=== PATIENT | female | born 1945 | race Caucasian/White ===

== ENCOUNTER → 2017-11-01 15:04 | Outpatient (CLI) | payer MEDICARE, SELFPAY ==
--- NOTE | 2017-11-01 11:00 | CYSPIN_PTH ---
PATIENT: APOLLO CARREON LOC: [facility] U#:[id number] AGE/SX: 79/F ROOM: RE11/01/[address]: Dr. Alexander Patton MD : 1945 BED: DIS: SPEC #: [id number] RECD: 11/03/17 07:57 STATUS: TODD WOODY #: [id number] ИРИНА: 11/01/17 11:[address]: Alexander Patton DEPT: CYTOLOGY RECD BY: Louie Huertas ENTERED: 11/03/17 07:58 SP TYPE: CYSPIN FL OTHR DR: Dr. Dontae Segundo MD Tissues: Urine Procedures: Pap Stain (control) Special Stain Group II Cytospin Fluid HEADER OPERATION: Not noted PRE-OP DIAGNOSIS: Hematuria TISSUE SUBMITTED: Urine for cytology DIAGNOSIS CYTOLOGY Urine for cytology (cytospin): Negative for malignant cells. AM:joselin 11/04/17 CYTOLOGY STUDY Slides are reviewed. CYTOLOGY GROSS Received is 10 ml of clear yellow fluid labeled with the patient's name and and designated per the requisition as urine. Submitted for cytology preparation. 11/03/17 TC:5 CPT: 81846
[2017-11-01 15:06] LABS: Cytology, Body Fluid / CSF SEE PATHOLOGY REPORT
== END ==
PROVIDERS: Family Provider Family Medicine; PCP Family Medicine; Visit Provider Urology
DX: R31.9 Hematuria, unspecified (principal)
CPT/HCPCS: 88108; 88313

== ENCOUNTER 2017-11-11 12:31 | Day surgery (SDC) | payer MEDICARE, SELFPAY ==
--- NOTE | 2017-11-11 | URE_PTH ---
PATIENT: APOLLO CARREON LOC: [facility] – [place] U#:[id number] AGE/SX: 72/F ROOM: RE11/11/[address]: Dr. Alexander Patton MD : 1945 BED: DIS: 11/11/2017 SPEC #: [id number] RECD: 11/11/17 16:24 STATUS: TODD WOODY #: [id number] ИРИНА: 11/11/17 00:[address]: Alexander Patton DEPT: SURGICAL PATHOLOGY RECD BY: Tao Brizuela ENTERED: 11/14/17 12:29 SP TYPE: URETER BX OTHR DR: Dr. Dontae Segundo MD Tissues: Ureter, NOS Procedures: Surgery Specimen Level IV HEADER OPERATION: Cysto, ureteroscopy, retrograde PRE-OP DIAGNOSIS: Left hydronephrosis, hydroureter, left flank pain TISSUE SUBMITTED: Left ureter biopsy MICROSCOPIC DIAGNOSIS Left ureter, biopsy: No tissue is identified. SJ:joselin 11/15/17 COMMENT Correlation with clinical findings and appropriate follow up are necessary. Case has been reviewed in consultation with Dr. Vazquez who concurs with the above diagnosis. IDC:AM MICROSCOPIC DESCRIPTION Slides are reviewed. GROSS DESCRIPTION Received in fixative is one container labeled with the patient's name and designated left ureter biopsy. No obvious tissue is identified. Multiple gauze fragments are noted. The specimen is filtered and submitted entirely in one cassette. It is doubtful any tissue is present in the specimen. / SJ:joselin 11/14/17 TC: Cannot code CPT: 86028
--- NOTE | 2017-11-11 | FLU_PTH ---
PATIENT: APOLLO CARREON [place] [facility] [place][id number] AGE/SX: 72/F ROOM: RE11/11/[address]: Dr. Alexander Patton MD : 1945 BED: DIS: 11/11/2017 SPEC #: [id number] RECD: 11/11/17 12:29 STATUS: TODD WOODY #: [id number] ИРИНА: 11/11/17 00:[address]: Alexander Patton DEPT: CYTOLOGY RECD BY: Tao Brizuela ENTERED: 11/14/17 12:30 SP TYPE: Fluid OTHR DR: Dr. Dontae Segundo MD Tissues: Ureter, NOS Procedures: Pap Stain (control) Special Stain Group II Cytospin Fluid HEADER OPERATION: Cysto, ureteroscopy, retrograde PRE-OP DIAGNOSIS: Left hydronephrosis, hydroureter, left flank pain TISSUE SUBMITTED: Fluid for cytology from left ureter DIAGNOSIS CYTOLOGY Fluid for cytology from left ureter (cytospin): Acellular specimen. SJ:rg 11/15/17 COMMENT Case has been reviewed in consultation with Dr. Vazquez who concurs with the above diagnosis. IDC:AM CYTOLOGY STUDY Slides are reviewed. CYTOLOGY GROSS Received is 0.25 ml of clear fluid labeled with the patient's name and and designated per the requisition as left ureter. Submitted for cytology preparation. / 11/14/17 TC: Cannot code CPT: 37724
[2017-11-11 13:14] VITALS: BP 143/72; PULSE 68; RESP 16; TEMP 36.4; O2SAT 96; BMI 29.3
--- NOTE | 2017-11-11 16:09 | PCM.DC.URO ---
Discharge Diet: Light diet - advance as tolerated Discharge Activity: Return to Normal Activity Instructions: Ureteral Stents Allergies/Adverse Reactions: Allergies RASHEL Inhibitors Adverse Reaction (Verified 11/07/17 14:06) Other levofloxacin [From Levaquin] Adverse Reaction (Verified 11/07/17 14:06) Rash Medications to take at Discharge Amlodipine [Norvasc] 5 mg PO DAILY 11/07/17 Ascorbic Acid [Vitamin C] 1,000 mg PO PRN PRN 11/07/17 Aspirin [Aspirin, Baby] 81 mg PO DAILY@0800 11/07/17 Atorvastatin Calcium [Lipitor] 40 mg PO QHS 11/07/17 Budesonide/Formoterol 80-4.5 [Symbicort 80-4.5 Mcg Inhaler] 1 puff IN BID 11/07/17 Calcium Carbonate/Vitamin D3 [Calcium 600-Vit D3 800 Tablet] 1 each PO DAILY 11/07/17 Hydrochlorothiazide [Hctz] 25 mg PO DAILY 11/07/17 Lorazepam [Ativan] 1 mg PO BID 11/07/17 Losartan Potassium [Losartan Potassium] 100 mg PO DAILY 11/07/17 Methimazole [Tapazole] 5 mg PO DAILY 11/07/17 Metoprolol Succinate [Toprol Xl] 50 mg PO DAILY 11/07/17 [place]-3 Fatty Acids [Fish Oil] 500 mg PO DAILY 11/07/17 Potassium Chloride [K-Dur] 20 meq PO DAILY 11/07/17 Tiotropium [place] [Spiriva] 18 mcg IH DAILY 11/07/17 Vitamin B Complex 1 each PO DAILY 11/07/17 Zolpidem Tartrate [Zolpidem Tartrate] 5 mg PO DAILY 11/07/17 Hydrocodone/Acetaminophen [Frazee 5-325 Tablet] 1 ea PO Q4H PRN PRN 7 Days #14 tab 11/11/17 The following prescriptions were given: Hydrocodone/Acetaminophen [Frazee 5-325 Tablet] 1 ea PO Q4H PRN PRN 7 Days #14 tab PRN Reason: Pain Primary Care Physician: Dontae Segundo MD [Primary Care Provider] - Test Results: Test results from this visit will be discussed in further detail at your follow-up appointment, if applicable. Please Follow Up With: Alexander Patton MD When: 2 weeks, please call to make an appointment.
--- NOTE | 2017-11-11 16:10 | PCM.OPRPT ---
Report of Operation Date of Procedure: 11/11/17 Pre-Operative Diagnosis: Left hydronephrosis and hydroureter Post-Operative Diagnosis: Same and ureteral scar tissue Surgery/Procedure Performed:: Cystoscopy, left retrograde pyelogram, left ureteroscopy and biopsy of ureter, balloon dilation of the ureter, left stent placement. Description of Surgical Findings:: 72-year-old female who was an outside hospital with severe pain on the left side with hydronephrosis on CAT scan was done no clear stone was seen some sludge reported in the ureter. Today she reports to the hospital for diagnostic ureteroscopy on the left side and will attempt to inspect the ureter and a biopsy and possibly place a stent. 69-year-old female taken back to the operating room after smooth induction of general anesthesia she was placed supine in a dorsolithotomy position, the urethra and vaginal area were prepped and draped in usual sterile fashion, the urethra is normal she did have a very large cystocele and drop bladder went inside the bladder the 21 Burkinan rigid cystourethroscope the entire bladder mucosa was normal no tumors or stones seen with the mucosa she did have a significant cystocele at the deflect the scope quite a bit and noted to see the ureteral orifices below identified the right ureteral orifice which is normal identify the left ureteral orifice is also normal vaginal area is fairly atrophic. I then cannulated the left ureteral orifice with a Pollack catheter, whistle-tip catheter and did a retrograde pyelogram that demonstrated certainly abnormal left ureter very narrow contrast and dilation of the ureter then very narrow again. Unclear exactly what this was but a very tight ureter ureter was pulled quite medially so the idea perhaps retroperitoneal fibrosis came into play. I then went in with a rigid SlimLine ureteroscope and got into the ureter and went up some again I got very tight tight ureter could not get beyond the area on the ureter and came back down left the wire in place but a second wire up and then over the second wire I advanced the balloon dilator it was only a 12 Burkinan 10 cm balloon dilator was able to get the balloon dilator past the initial area of real dense scar tissue and dilated a little bit then went back in with the flexible ureteroscope again could not get up the ureter was very tight stenotic fibrotic looking ureter. Through the ureteroscope and advanced the biopsy forceps and pushed a biopsy forcep of the ureter did a biopsy this was sent off as a specimen is a very small specimen, I also sent off the urine for cytology. 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 I left the stent in place and my plan is to see her in about 2 weeks for checkup to review the biopsies and cytology but probably will refer her for a second opinion regarding possible retroperitoneal fibrosis. Again it try to go up with a ureteroscope but it is impossible to get past after about 4 5 cm of the ureter it was pulled medially very tight stenotic fortunately the stent went in quite easily place a stent on that side I drain the bladder patient anesthetic reversed taken back to PACU in good condition. Type of Anesthesia:: General Drains: stent left side - Admit VTE Documentation VTE Present on Admission: No VTE Mechan Device Prophylaxis: SCD's VTE Pharm Prophylaxis ordered?: No Reason prophylaxis not ordered:: Treatment Not Indicated
[2017-11-11 16:15] VITALS: BP 118/52; BP 143/72; PULSE 49; RESP 18; TEMP 36.1; O2SAT 94
[2017-11-11 16:30] VITALS: BP 136/59; BP 143/72; PULSE 51; RESP 16; O2SAT 98
[2017-11-11 16:45] VITALS: BP 132/63; BP 143/72; PULSE 60; RESP 16; O2SAT 93
[2017-11-11 17:01] VITALS: BP 143/72; BP 166/77; PULSE 69; RESP 16; TEMP 35.9; O2SAT 100
[2017-11-11] MEDS: HYDROcodone Bitartrate/Apap 5/325 Tablet PO (17:35)
[2017-11-11 18:50] VITALS: BP 134/62; BP 143/72; PULSE 60; RESP 16; TEMP 36.6; O2SAT 94
== END 2017-11-11 19:01 | disposition home or self-care (01) ==
LOC: SDC 12:32 → AC 12:43
PROVIDERS: Family Provider Family Medicine; PCP Family Medicine; Visit Provider Urology
PROC: (CPT 52332; principal; 2017-11-11 14:15)
DX: N28.89 Other specified disorders of kidney and ureter (principal); N13.39 Other hydronephrosis; N23 Unspecified renal colic; E78.00 Pure hypercholesterolemia, unspecified; F41.9 Anxiety disorder, unspecified; F32.9 Major depressive disorder, single episode, unspecified; I15.8 Other secondary hypertension; J43.9 Emphysema, unspecified; I11.9 Hypertensive heart disease without heart failure; E06.9 Thyroiditis, unspecified; Z85.828 Personal history of other malignant neoplasm of skin; Z79.82 Long term (current) use of aspirin; Z79.899 Other long term (current) drug therapy
CPT/HCPCS: 00910; 52332; 52354; 76000; 88108; 88305; 88313; J7120; C1758; C1769; C2617; J2405

== ENCOUNTER → 2018-02-21 14:19 | Outpatient (CLI) | payer MEDICARE, SELFPAY ==
--- NOTE | 2018-02-21 | IMM_PTH ---
PATIENT: APOLLO CARREON LOC: [facility] U#:[id number] AGE/SX: 79/F ROOM: RE02/21/[address]: Dr. Dontae Fung MD : 1945 BED: DIS: SPEC #: [id number] RECD: 02/22/18 14:46 STATUS: TODD REQ #: [id number] ИРИНА: 02/21/18 00:[address]: Dontae Fung DEPT: IMMUNOHISTOCHEMISTRY RECD BY: Patria Hurtado ENTERED: 02/22/18 14:47 SP TYPE: IMMUNO OTHR DR: Dr. Dontae Segundo MD Tissues: Neck, NOS Procedures: RCC (add) NAPSIN A (add) CK20 (add) CK5-6 (add) CK7 (add) CK8 (add) HEP PAR (add) P16 (add) WA (add) TTF1 (add) Pankeratin (add) P40 (add) ER (initial) PHYSICIAN & [address] [address] SPECIMEN INFORMATION: Tissue Source: Left neck tissue Clinical Info: Left neck mass Specimen Number: [id number] CPT code: 88123, 83235 x12 METHODOLOGY: Deparaffinized sections of prefer/formalin-fixed tissue or PAP/DQ stained slides are incubated with monoclonal/polyclonal antibodies/oligonucleotide probes. Localization is made via biotin free immunoperoxidase method. Appropriate controls are performed and reacted as expected. Results on target cell population are indicated in the following table: RESULTS: ANTIBODY / CLONE RESULT ER (6F11) negative WA (1E2) negative AE1-3 (AE1/AE3/PCK26) positive CK7 (OV-TL12/30) positive, focal CK8 (31apnbW58) negative CK20 (KS20.8) negative TTF-1 (8G7G3/1) negative Napsin A (Rabbit Polyclonal) negative HepPar (OCh1E5) negative RCC (PN-15) negative CK5-6 (D5 & 1684) positive P16 (E6H4) negative P40 (BC28) positive These tests were developed and their performance characteristics determined by [facility]. They may not have been cleared or approved by the U.S. Food and Drug Administration. The FDA has determined that such clearance or approval is not necessary. INTERPRETATION: Left neck mass, mammotome biopsy: Non-small cell carcinoma, favor squamous cell carcinoma. RAFITA:joselin 02/23/18
--- NOTE | 2018-02-21 | MASS_PTH ---
PATIENT: APOLLO CARREON LOC: [facility] U#:[id number] AGE/SX: 79/F ROOM: RE02/21/[address]: Dr. Dontae Fung MD : 1945 BED: DIS: SPEC #: [id number] RECD: 02/21/18 14:23 STATUS: TODD WOODY #: [id number] ИРИНА: 02/21/18 00:[address]: Dontae Fung DEPT: SURGICAL PATHOLOGY RECD BY: Tao Brizuela ENTERED: 02/21/18 14:23 SP TYPE: Mass OTHR DR: Dr. Dontae Segundo MD Tissues: Neck, NOS Procedures: Surgery Specimen Level IV HEADER OPERATION: Mammotome biopsy left neck mass PRE-OP DIAGNOSIS: Left neck mass TISSUE SUBMITTED: Left neck tissue MICROSCOPIC DIAGNOSIS Left neck mass, mammotome core biopsy: Non-small cell carcinoma, favor squamous cell carcinoma. See comment. RAFITA:joselin 02/22/18 COMMENT Immunohistochemistry ([id number]) supports the above diagnosis. MICROSCOPIC DESCRIPTION Slides are reviewed. GROSS DESCRIPTION Received in fixative is one container labeled with the patient's name and designated left neck. The specimen consists of multiple fragments of doshi-yellow fibroadipose tissue mixed with blood clot that in aggregate measure 2.5 x 1.5 x 0.1 cm. The entire specimen is submitted in one cassette. / SJ:rg 02/21/18 TC:0 CPT: 26937 ADDENDUM ADDENDUM ADDENDUM ADDENDUM ADDENDUM ADDENDUM ADDENDUM 03/21/2018 10:37 ADDENDUM 03/21/2018 10:37 ADDENDUM 03/21/2018 10:37 ADDENDUM 03/21/2018 10:37 ADDENDUM 03/21/2018 10:37 PD-L1 (KEYTRUDA) IMMUNOHISTOCHEMISTRY ANALYSIS FROM [facility] INTERPRETATION: Low expression Tumor proportion score: 10% Please see complete report in e-chart or EMR for complete details
== END ==
PROVIDERS: Family Provider Family Medicine; PCP Family Medicine; Referring Provider Surgery; Visit Provider Surgery
DX: R22.1 Localized swelling, mass and lump, neck (principal)
CPT/HCPCS: 88305; 88341; 88342

== ENCOUNTER → 2018-03-01 07:04 | Outpatient (CLI) | payer MEDICARE, SELFPAY ==
--- NOTE | 2018-03-01 07:06 | CT_ITS ---
STUDY: CT CHEST WITH CONTRAST REASON FOR EXAM: Female, 72 years old. 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 Evaluate for original source of cancer RADIATION DOSAGE (If Supplied By Facility): CTDIvol = ( 8.01 ) mGy, DLP = ( 240.94 ) mGycm TECHNIQUE: Transaxial imaging was performed following intravenous administration of 100 ml of Isovue 300 contrast material. Individualized dose optimization techniques were used for this CT. COMPARISON: None. FINDINGS: Heterogeneous thyroid with multiple nodules. Adjacent to the left thyroid lobe, there is a ill-defined mass measuring 6 x 4.8 cm. Punctate calcifications within this mass. Lungs are adequately inflated without acute airspace disease. In the right middle lobe, there are several pulmonary nodules, one measuring 7.2 x 7 mm and a second nodule measuring 7.6 x 6.1 mm. No other nodules are identified. There is no demonstrated pleural abnormality. Normal heart and pericardium. Normal mediastinum. Normal hilar regions. Normal enhanced pulmonary arteries. There is atherosclerotic tortuosity of the aortic arch and descending thoracic aorta. There are multi-level degenerative changes of the thoracic spine. Abnormal appearance of the left kidney with decreased enhancement as compared to the right kidney with hydronephrosis; only partially visualized. CT/Chest WITH Contrast IMPRESSION: 1. Ill-defined mass adjacent to the left thyroid lobe as detailed above with punctate calcifications. Malignancy is not excluded 2. Several right middle lobe pulmonary nodules. No other pulmonary nodules. No acute airspace disease. Recommend chest CT follow-up in 3-6 months 3. Multiple hypodense bilateral thyroid nodules 4. Only partially visualized left kidney however, decreased enhancement as compared to the right kidney. Left hydronephrosis. Further evaluation is warranted with renal ultrasound. Electronically Signed: Sanchez Collins DO at 8:40 EDT Tel , Service support ,
[2018-03-01 07:21] LABS: CREATININE FINGERSTICK 1.3 mg/dL (0.55-1.02)
== END ==
PROVIDERS: Family Provider Family Medicine; PCP Family Medicine; Referring Provider Surgery; Visit Provider Surgery
DX: C44.42 Squamous cell carcinoma of skin of scalp and neck (principal)
CPT/HCPCS: 71260; Q9967

== ENCOUNTER → 2018-03-06 06:52 | Outpatient (CLI) | payer MEDICARE, SELFPAY ==
--- NOTE | 2018-03-06 07:30 | PET_ITS ---
EXAMINATION: FDG PET/CT INDICATIONS: A 72-year-old female with history of apparent primary head and neck carcinoma presenting for initial staging examination. COMPARISON EXAMINATION: CT of the chest report dated 01/30/18 INDEX LESION SIZE SUV INTERPRETATION Left supraclavicular region 58.5 x 35.8-mm (frame 215) 7.3 Fulfills quantitative criteria for viable neoplasm Abdominal retroperitoneum and retrocrural regions, bilateral hemipelvis 18.2-mm (largest) (frame 103) 4.8 (max) Fulfills quantitative criteria for viable neoplasm Anterior neck 25.5-mm (frame 222) 3.9 Of uncertain etiology Right lobe hepatic parenchyma segment VIII 12.2-mm (frame 156) 4.0 ratio > 2.0 Fulfills quantitative criteria for viable neoplasm TECHNIQUE: Following the intravenous administration of 14.9 mCi of F-18 deoxyglucose via the left antecubital fossa, multiplanar image acquisitions of the neck, chest, abdomen and pelvis to level of mid thigh, obtained at one hour post radiopharmaceutical administration contemporaneously interpreted with the current CT of the neck, chest, abdomen and pelvis to level of mid thigh, dated 03/06/[address] of the chest report dated 01/30/18 reveal: SERUM GLUCOSE LEVEL: 121 mg/dl. HEIGHT: 61 inches. WEIGHT: 145 lbs. FINDINGS: 1. Asymmetric increased glucose metabolism is manifest in the left supraclavicular region generating a calculated maximal standard uptake value of 7.3. The maximal axial diameter of the corresponding metabolic, morphologic abnormality on review of CT of the thorax dated 03/06/18 is 58.5-mm (transverse) x 35.8-mm (AP). 2. Asymmetric increased glucose concentration is defined in the right anterior neck which appears contiguous to the right true-false vocal cord extending posteriorly to the arytenoid cartilage. The calculated maximal standard uptake value is 3.9. The maximal axial diameter of the corresponding asymmetric metabolic abnormality on review of CT of the neck dated 03/06/18 is 25.5-mm (AP). 3. Multiple foci of increased glucose concentration are demonstrated in the upper to lower abdominal retroperitoneum and upper abdomen retrocrural regions, bilateral hemipelvis. The calculated maximal standard uptake value is 4.8. The maximal axial diameter of the largest individual hypermetabolic soft tissue density on review of CT of the abdomen and pelvis dated 03/06/18 is 18.2-mm (AP). 4. There is focal enhanced FDG concentration noted in the superior aspect of the right lobe of the liver (3.8) involving segment VIII rendering a calculated maximal standard uptake value of 4.0, with a lesion to liver background ratio greater than 2.0. The maximal axial diameter of the corresponding metabolic abnormality on review of CT of the abdomen dated 03/06/18 is 12.2-mm (transverse). 5. Normal physiologic distribution of the radiopharmaceutical is apparent in the splenic parenchyma, both renal units, bladder and visualized intestinal tract. The visualized portion of the cerebral cortex demonstrate symmetric and preserved glucose metabolism. Diffuse radiopharmaceutical concentration is noted in all four quadrants of the abdomen and pelvis. Pertinent CT findings are as follows: CHEST: There is atherosclerotic calcification defined in the thoracic aorta without evidence of dilatation-aneurysm formation. Coronary arterial calcification is observed. Subcentimeter bilateral axillary soft tissue densities are non-glucose avid. There are no parenchymal densities-nodules noted in the right-left hemithorax demonstrating discernible increased glucose metabolism. Enhanced FDG distribution is manifest in the bilateral major fissures which appear ametabolic. ABDOMEN AND PELVIS: There is atherosclerotic calcification defined in the abdominal aorta without evidence of dilatation-aneurysm formation. Pelvic arterial calcification is observed. A left ureteral stent is defined. Retained oral contrast material is noted within the visualized intestinal tract. There is dilatation of the left kidney collecting system. Bilateral subcentimeter inguinal soft tissue densities are non-glucose avid. SKELETAL: Degenerative changes are noted in the cervical, thoracic and lumbar spine. Orthopedic hardware placement is defined in the lower lumbar spine and sacrum. PET/PET/CT Tumor Base -Thigh Init IMPRESSION: 1. ABNORMAL EXAMINATION INDICATIVE OF MALIGNANT VIABLE NEOPLASM. 2. Increased glucose concentration observed in the left supraclavicular region fulfills quantitative criteria for viable neoplasm. 3. Neoplastic infiltration appears evident in the abdominal retroperitoneum and retrocrural regions, bilateral hemipelvis. 4. Asymmetric enhanced radiopharmaceutical concentration noted in the anterior neck at the level of the laryngeal structures is of uncertain etiology in view of the patient?s negative direct visualized evaluation of the region. 5. Viable neoplasm appears evident at the right lobe of the hepatic parenchyma in a single hypermetabolic focus. (Marcela et al, Archives of Surgery, 133:510 1998). Electronic Signature Louie Hernandez D.O. Electronically Signed: Louie Hernandez DO at 23:55 EST Tel , Service support ,
== END ==
PROVIDERS: Family Provider Family Medicine; PCP Family Medicine; Visit Provider Internal Medicine Hematology & Oncology
DX: C76.0 Malignant neoplasm of head, face and neck (principal)
CPT/HCPCS: 78815; A9552

== ENCOUNTER → 2018-03-14 17:21 | Outpatient (CLI) | payer MEDICARE, SELFPAY ==
--- NOTE | 2018-03-14 18:15 | MRI_ITS ---
STUDY: MR PELVIS WITH T WITHOUT CONTRAST REASON FOR EXAM: Female, 72 years old. Abnormal PET scan, left lateral pelvis soft tissue abnormality. No pain or palpable abnormality. Recent new diagnosis of head and neck cancer. TECHNIQUE: Standardized fat and water weighted pulse sequences were obtained in all 3 orthogonal planes, pre-and post contrast administration. 7 ml of Gadavist contrast material was administered intravenously for the contrast portion of the examination. COMPARISON: CT PET 03/06/2018. FINDINGS: Mildly enlarged lymph nodes are visible along the iliac chains bilaterally concordant with PET positive lymph nodes seen on recent prior PET/CT. No other acute intrapelvic process is evident. No acute osseous process. On the PET scan, there is increased radiotracer activity within the distal left luteal muscles, just above the greater trochanter of the femur. On today's study there is a normal appearance of the musculature in that location. No evidence of mass or muscular inflammation and no evidence of muscular injury. Adjacent femur and pelvis are normal. MRI/Pelvis W/WO Contrast IMPRESSION: There is no evidence of pelvic wall soft tissue mass. The increased radiotracer activity seen in the left gluteal musculature on PET scan can be attributed to muscular activity/patient movement. There is no evidence of pelvic osseous metastatic disease. Electronically Signed: Louie Lu, at 12:37 EST Tel , Service support ,
== END ==
PROVIDERS: Family Provider Family Medicine; PCP Family Medicine; Referring Provider Radiology Radiation Oncology; Visit Provider Radiology Radiation Oncology
DX: C77.0 Secondary and unspecified malignant neoplasm of lymph nodes of head, face and neck (principal); C80.1 Malignant (primary) neoplasm, unspecified
CPT/HCPCS: 72197; A9585

== ENCOUNTER 2018-03-20 09:42 | Day surgery (SDC) | payer MEDICARE, SELFPAY ==
--- NOTE | 2018-03-16 13:23 | RAD_ITS ---
STUDY: X-RAY CHEST REASON FOR EXAM: Female, 72 years old. Preoperative evaluation. TECHNIQUE: PA and lateral views of the chest. COMPARISON: None. FINDINGS: Hyperinflation. Increased linear markings with areas of confluence in the lingular segment of the left upper lobe. This may represent either atelectasis and/or early infiltrate. Follow-up is recommended. There is no demonstrated pleural abnormality. Normal size heart. Normal mediastinum and chay. Normal visualized pulmonary arteries. There is atherosclerotic calcification of the aortic arch with tortuosity. There is demineralization of the osseous structures. Fusion in the lower lumbar spine. Normal visualized ribs, clavicles, and shoulders. A double-J stent catheter is seen within the left renal pelvis and ureter. RAD/Chest PA and Lateral IMPRESSION: Hyperinflation. Increased markings in the lingular segment of the left upper lobe suggestive of atelectasis and/or infiltrate. Electronically Signed: Ton Ybarra MD at 13:51 EST Tel [phone], Service support ,
--- NOTE | 2018-03-16 13:58 | EKG12_ITS ---
Test Reason : PRE OP Blood Pressure : / mmHG Vent. Rate : 075 BPM Atrial Rate : 075 BPM P-R Int : 144 ms QRS Dur : 084 ms QT Int : 382 ms P-R-T Axes : 065 060 064 degrees QTc Int : 426 ms Normal sinus rhythm ST abnormality, possible digitalis effect Abnormal ECG Confirmed by THOM RIVERA, HARPREET ([id number]), avid editor TONYA CARREON ([id number]) on 03/17/2018 4:09:25 PM Referred By: Luís Sweeney Confirmed By:HARPREET TOMAS MD
--- NOTE | 2018-03-20 | FLU_PTH ---
PATIENT: APOLLO CARREON LOC: [facility] [place] U#:[id number] AGE/SX: 72/F ROOM: RE03/20/[address]: Dr. Rupert Sweeney MD : 1945 BED: DIS: 03/20/2018 SPEC #: [id number] RECD: 03/20/18 15:09 STATUS: TODD WOODY #: [id number] ИРИНА: 03/20/18 00:[address]: Rupert Sweeney DEPT: CYTOLOGY RECD BY: Tao Brizuela ENTERED: 03/20/18 15:10 SP TYPE: Fluid OTHR DR: Dr. 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 See comment. SJ:rg 03/21/18 COMMENT Immunohistochemistry ([id number]) supports the above diagnosis. Correlation with clinical findings and appropriate follow up are necessary. Please also correlate with corresponding surgical specimen [id number]. Please make reference to previous specimen ([id number]), left neck mass, mammotome core biopsy with diagnosis of non-small cell carcinoma, favor squamous cell carcinoma. Case has been reviewed in consultation with Dr. Vazquez who concurs with the above diagnosis. IDC:AM CYTOLOGY STUDY Slides are reviewed. CYTOLOGY GROSS Received is 30 ml of pink cloudy fluid labeled with the patient's name and and designated per the requisition as left neck mass. Submitted for cytology preparation including cell block. / 03/20/18 TC:0 CPT: 08609, 39285
--- NOTE | 2018-03-20 | IMM_PTH ---
PATIENT: APOLLO CARREON LOC: [facility] [place] U#:[id number] AGE/SX: 72/F ROOM: RE03/20/[address]: Dr. Rupert Sweeney MD : 1945 BED: DIS: 03/20/2018 SPEC #: [id number] RECD: 03/21/18 13:15 STATUS: TODD REQ #: [id number] ИРИНА: 03/20/18 00:[address]: Rupert Sweeney DEPT: IMMUNOHISTOCHEMISTRY RECD BY: Patria Hurtado ENTERED: 03/21/18 13:17 SP TYPE: IMMUNO OTHR DR: Dr. Dontae Segundo MD Tissues: Neck, NOS Procedures: RCC (add) NAPSIN A (add) CK20 (add) CK5-6 (add) CK8 (add) HEP PAR (add) P16 (add) PSA (add) TTF1 (add) P40 (add) CK7 (initial) PHYSICIAN & [address] [address] SPECIMEN INFORMATION: Tissue Source: Left neck mass Clinical Info: Left neck mass, hoarseness, paralysis of right vocal cord Specimen Number: [id number] CPT code: 56480, 59766 x10 METHODOLOGY: Deparaffinized sections of prefer/formalin-fixed tissue or PAP/DQ stained slides are incubated with monoclonal/polyclonal antibodies/oligonucleotide probes. Localization is made via biotin free immunoperoxidase method. Appropriate controls are performed and reacted as expected. Results on target cell population are indicated in the following table: RESULTS: ANTIBODY / CLONE RESULT CK7 (OV-TL12/30) negative CK8 (21lrshU14) negative CK20 (KS20.8) negative TTF-1 (8G7G3/1) negative Napsin A (Rabbit Polyclonal) negative HepPar (OCh1E5) negative RCC (PN-15) negative PSA (ER-PR8) negative CK5-6 (D5 & 1684) positive P16 (E6H4) negative P40 (BC28) positive These tests were developed and their performance characteristics determined by [facility]. They may not have been cleared or approved by the U.S. Food and Drug Administration. The FDA has determined that such clearance or approval is not necessary. 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 SJ:joselin 03/22/18
--- NOTE | 2018-03-20 | LARBX_PTH ---
PATIENT: APOLLO CARREON LOC: [facility] [place] U#:[id number] AGE/SX: 72/F ROOM: RE03/20/[address]: Dr. Rupert Sweeney MD : 1945 BED: DIS: 03/20/2018 SPEC #: [id number] RECD: 03/20/18 15:09 STATUS: TODD WOODY #: [id number] ИРИНА: 03/20/18 00:[address]: Rupert Sweeney DEPT: SURGICAL PATHOLOGY RECD BY: Tao Brizuela ENTERED: 03/20/18 15:09 SP TYPE: LARYNX BX OTHR DR: Dr. Dontae Segundo MD Tissues: Laryngeal cavity Procedures: Surgery Specimen Level IV HEADER OPERATION: Direct laryngoscopy, left focal cord injection, left laryngeal biopsy PRE-OP DIAGNOSIS: Left neck mass, hoarseness, paralysis of right vocal cord TISSUE SUBMITTED: Left laryngeal biopsy MICROSCOPIC DIAGNOSIS Left laryngeal mass, biopsy: A piece of lymphoid tissue with overlying squamous epithelium with reactive changes. Negative for malignancy. SJ:joselin 03/21/18 COMMENT The findings may represent tonsillar tissue. Please also correlate with corresponding cytology ([id number]), left neck mass, FNA with diagnosis of malignant cells present derived from squamous cell carcinoma. Please make reference to previous specimen ([id number]), left neck mass, mammotome core biopsy with diagnosis of non-small cell carcinoma, favor squamous cell carcinoma. Case has been reviewed in consultation with Dr. Vazquez who concurs with the above diagnosis. IDC:AM MICROSCOPIC DESCRIPTION Slides are reviewed. GROSS DESCRIPTION Received in fixative is one container labeled with the patient's name and designated left laryngeal mass biopsy. The specimen consists of one irregular fragment of doshi tissue measuring 0.7 x 0.5 x 0.2 cm. The specimen is totally submitted in one cassette. / AM:joselin 03/20/18 TC:5 CPT: 97702
[2018-03-20 10:48] VITALS: BP 147/65; PULSE 84; RESP 18; TEMP 36.6; O2SAT 100; BMI 26.0
--- NOTE | 2018-03-20 12:03 | PCM.DC ---
You will use the following diet at home:: No restrictions Discharge Activity: Return to Normal Activity Call your doctor if your incision/area has: Increased Pain/ Swelling Allergies/Adverse Reactions: Allergies RASHEL Inhibitors Adverse Reaction (Verified 11/07/17 14:06) Other levofloxacin [From Levaquin] Adverse Reaction (Verified 11/07/17 14:06) Rash Medications to take at Discharge Amlodipine [Norvasc] 5 mg PO DAILY 11/07/17 Ascorbic Acid [Vitamin C] 1,000 mg PO PRN PRN 11/07/17 Aspirin [Aspirin, Baby] 81 mg PO DAILY@0800 11/07/17 Atorvastatin Calcium [Lipitor] 40 mg PO QHS 11/07/17 Budesonide/Formoterol 80-4.5 [Symbicort 80-4.5 Mcg Inhaler] 1 puff IN BID 11/07/17 Calcium Carbonate/Vitamin D3 [Calcium 600-Vit D3 800 Tablet] 1 each PO DAILY 11/07/17 Hydrochlorothiazide [Hctz] 25 mg PO DAILY 11/07/17 Lorazepam [Ativan] 1 mg PO BID 11/07/17 Methimazole [Tapazole] 5 mg PO DAILY 11/07/17 Metoprolol Succinate [Toprol Xl] 50 mg PO DAILY 11/07/17 [place]-3 Fatty Acids [Fish Oil] 500 mg PO DAILY 11/07/17 Potassium Chloride [K-Dur] 20 meq PO DAILY 11/07/17 Tiotropium [place] [Spiriva] 1 puff IH DAILY 11/07/17 Vitamin B Complex 1 each PO DAILY 11/07/17 Zolpidem Tartrate 5 mg PO DAILY PRN 11/07/17 Hydrocodone/Acetaminophen [[place] 5-325 Tablet] 1 ea PO Q4H PRN PRN 7 Days #14 tab 11/11/17 Benzonatate [Tessalon Perle] 100 mg PO TID PRN 03/17/18 Morphine Sulfate 15 mg PO BID 03/17/18 morphine solution (IR) [Roxanol (IR oral solution)] 1.3 ml PO Q4H PRN PRN 03/17/18 Amoxicillin/Potassium Clav [Amox-Clav 875-125 mg Tablet] 1 tab PO BID 03/20/18 Primary Care Physician: Dontae Segundo MD [Primary Care Provider] - Test Results: Test results from this visit will be discussed in further detail at your follow-up appointment, if applicable. Please Follow Up With: Luís Sweeney MD When: 2 weeks
--- NOTE | 2018-03-20 12:05 | PCM.OPRPT ---
Problem List (1) Vocal cord paralysis Status: Acute Report of Operation Pre-Operative Diagnosis: left vocal cord immobility Post-Operative Diagnosis: left vocal cord immobility Surgery/Procedure Performed:: 1. vocal cord injection, left. 2. diagnostic laryngoscopy with biopsy. 3. fine needle aspiration, left neck mass Type of Anesthesia:: General Description of Procedure: on the day of the procedure, after appropriate informed consent was obtained, the patient was brought to the operating room and placed in supine position on the operating table. she was placed under general endotracheal anesthesia by the anesthesiologist, the endotracheal tube was secured, the eyes were taped. the table was rotated 90 degrees toward the surgeon. a tooth guard was placed. a jovita laryngoscope was inserted into the oral cavity with care not to damage the lips, teeth or gums. it was suspended from the chu stand. a zero degree endoscope was used and a good glottic view was obtained. her left paraglottic space was injected with 1.0cc of prolaryn plus lateral to the junction of the anterior 2/3 and posterior 1/3. the vocal cord was well medialized. a spatula was used to evaluate the larynx, pharynx and hypopharynx - including the area of the right larynx/hypopharynx that had increased uptake on her PET/CT. these areas were normal with no masses or mucosal irregularities. some right base of tongue/lateral pharyngeal wall tissue was biopsied but did not look concerning. this concluded my portion of the case. the retractors and tooth guard were removed. she was then turned over to dr brown for her port placement. there were no complications.
[2018-03-20] MEDS: Cefazolin 2 GM in 0.9% Normal Saline 100 ML IV (12:25)
[2018-03-20] MEDS: Bupivacaine Mpf 0.5% 30 ML VIAL (12:59)
--- NOTE | 2018-03-20 13:23 | RAD_ITS ---
STUDY: X-RAY CHEST REASON FOR EXAM: Female, 72 years old. Post port placement TECHNIQUE: Single AP portable view of the chest. COMPARISON: March 16, 2018 chest x-ray FINDINGS: There is a right-sided portacatheter tip is in the superior vena cava. The lungs are hyperinflated. There is no persistent elevation of the left hemidiaphragm. There is an old fracture of the left sixth rib. There is no demonstrated pleural abnormality. There is mild cardiac enlargement. Normal mediastinum and chay. Normal visualized pulmonary arteries. Normal visualized aortic arch and descending thoracic aorta. Normal visualized thoracic spine. Normal visualized ribs, clavicles, and shoulders. There is no demonstrated abnormality of the visualized soft tissue structures of the upper abdomen. RAD/CXR for Line Placement IMPRESSION: New right-sided Port-A-Cath tip in the atriocaval junction in satisfactory position no visualized pneumothorax. Otherwise stable chest. Electronically Signed: Thania Barrera MD at 16:44 EST Tel , Service support ,
--- NOTE | 2018-03-20 13:24 | DCINST_ITS ---
Discharge Diet: No Restrictions - Pain medication may cause nausea. You should typically eat light foods as you take your pain medication. Discharge Activity: Return to Normal Activity Additional Activity Instructions:: May not drive, work with heavy equipment, or sign legal documents for [address] if you are no longer taking narcotic pain medications. You may drive when you are no longer taking pain medications. Call your doctor if your incision/area has: Increased Pain/ Swelling Additional Dressing/Incision Instructions:: Leave the bandage on for 2-3 days. When you remove the bandage, leave the steri-strips intact until they fall off. Allergies/Adverse Reactions: Allergies RASHEL Inhibitors Adverse Reaction (Verified 11/07/17 14:06) Other levofloxacin [From Levaquin] Adverse Reaction (Verified 11/07/17 14:06) Rash Medications to take at Discharge Amlodipine [Norvasc] 5 mg PO DAILY 11/07/17 Ascorbic Acid [Vitamin C] 1,000 mg PO PRN PRN 11/07/17 Aspirin [Aspirin, Baby] 81 mg PO DAILY@0800 11/07/17 Atorvastatin Calcium [Lipitor] 40 mg PO QHS 11/07/17 Budesonide/Formoterol 80-4.5 [Symbicort 80-4.5 Mcg Inhaler] 1 puff IN BID 11/07/17 Calcium Carbonate/Vitamin D3 [Calcium 600-Vit D3 800 Tablet] 1 each PO DAILY 11/07/17 Hydrochlorothiazide [Hctz] 25 mg PO DAILY 11/07/17 Lorazepam [Ativan] 1 mg PO BID 11/07/17 Methimazole [Tapazole] 5 mg PO DAILY 11/07/17 Metoprolol Succinate [Toprol Xl] 50 mg PO DAILY 11/07/17 [place]-3 Fatty Acids [Fish Oil] 500 mg PO DAILY 11/07/17 Potassium Chloride [K-Dur] 20 meq PO DAILY 11/07/17 Tiotropium [place] [Spiriva] 1 puff IH DAILY 11/07/17 Vitamin B Complex 1 each PO DAILY 11/07/17 Zolpidem Tartrate 5 mg PO DAILY PRN 11/07/17 Hydrocodone/Acetaminophen [[place] 5-325 Tablet] 1 ea PO Q4H PRN PRN 7 Days #14 tab 11/11/17 Benzonatate [Tessalon Perle] 100 mg PO TID PRN 03/17/18 Morphine Sulfate 15 mg PO BID 03/17/18 morphine solution (IR) [Roxanol (IR oral solution)] 1.3 ml PO Q4H PRN PRN 03/17/18 Amoxicillin/Potassium Clav [Amox-Clav 875-125 mg Tablet] 1 tab PO BID 03/20/18 Primary Care Physician: Dontae Segundo MD [Primary Care Provider] - Test Results: Test results from this visit will be discussed in further detail at your follow- up appointment, if applicable. Please Follow Up With: Dontae Fung MD - [phone] When: Further office follow up can be as needed
--- NOTE | 2018-03-20 13:25 | PCM.OPRPT ---
Problem List (1) Supraclavicular mass Status: Acute Report of Operation Date of Procedure: 03/20/18 Pre-Operative Diagnosis: Left neck mass Post-Operative Diagnosis: Same Surgery/Procedure Performed:: Right internal jugular 6 [place] power port placement Description of Surgical Findings:: Timeout and informed consent was obtained. 82-year-old female was taken the operating room. Dr. Sweeney performed laryngoscopy with vocal cord injection and biopsy. The patient received clindamycin 900 mg intravenously preoperatively per Dr. Sweeney and Ancef 2 g intravenously per myself. The right neck and chest were sterilely prepped and draped. 0.5% Marcaine was used as a local anesthetic. A total of 13 cc was used. Under ultrasound guidance local was instilled and then a micropuncture needle was inserted in the right internal jugular vein followed by salvage wire advancement. Local was instilled down upon the right anterior chest wall second intercostal space. Transverse incision was created electrocautery was used to make a sub-changes pocket. The tubing was tunneled from the chest to the neck site. Micropuncture sheath was placed over the wire. Fluoroscopy demonstrated good positioning. This was exchanged out for no 3 5 J-wire. Sheath dilator was inserted over the J-wire. The catheter was advanced through the sheath. The sheath was split. The catheter was positioned so the tip was close to the SVC atrial junction. The catheter was amputated length connected the port secured with port attachment device. The port was placed in the pocket and secured there with interrupted 2-0 silk. The port site was closed with interrupted 3-0 Vicryl subdermal stitches. The neck was closed with interrupted 5-0 Vicryl subdermal stitches. Steri-Strips Telfa and OpSite dressings applied. Sponge and instrument and needle counts were reported the surgeon be correct. Blood loss was minimal. He did well and was taken to the recovery room in satisfactory condition without apparent complication. Stat portable chest x-ray is pending. Specimens none. Drains none. Blood loss minimal. Dontae Fung M.D., F.A.C.S. Type of Anesthesia:: General Anesthesiologist: Rashawn Hogue
--- NOTE | 2018-03-20 13:29 | OP.PCM_ITS ---
Problem List (1) Supraclavicular mass Status: Acute Report of Operation Date of Procedure: 03/20/18 Pre-Operative Diagnosis: Left neck mass Post-Operative Diagnosis: Same Surgery/Procedure Performed:: Right internal jugular 6 [place] power port placement Description of Surgical Findings:: Timeout and informed consent was obtained. 82-year-old female was taken the operating room. Dr. Sweeney performed laryngoscopy with vocal cord injection and biopsy. The patient received clindamycin 900 mg intravenously preoperatively per Dr. Sweeney and Ancef 2 g intravenously per myself. [facility] neck and chest were sterilely prepped and draped. 0.5% Marcaine was used as a local anesthetic. A total of 13 cc was used. Under ultrasound guidance local was instilled and then a micropuncture needle was inserted in the right internal jugular vein followed by salvage wire advancement. Local was instilled down upon the right anterior chest wall second intercostal space. Transverse incision was created electrocautery was used to make a sub-changes pocket. The tubing was tunneled from the chest to the neck site. Micropuncture sheath was placed over the wire. Fluoroscopy demonstrated good positioning. This was exchanged out for no 3 5 J-wire. Sheath dilator was inserted over the J-wire. The catheter was advanced through the sheath. The sheath was split. The catheter was positioned so the tip was close to the SVC atrial junction. The catheter was amputated length connected the port secured with port attachment device. The port was placed in the pocket and secured there with interrupted 2- 0 silk. The port site was closed with interrupted 3-0 Vicryl subdermal stitches. The neck was closed with interrupted 5-0 Vicryl subdermal stitches. Steri-Strips Telfa and OpSite dressings applied. Sponge and instrument and needle counts were reported the surgeon be correct. Blood loss was minimal. He did well and was taken to the recovery room in satisfactory condition without apparent complication. Stat portable chest x-ray is pending. Specimens none. Drains none. Blood loss minimal. Dontae Fung M.D., F.A.C.S. Type of Anesthesia:: General Anesthesiologist: Rashawn Hogue
[2018-03-20 13:40] VITALS: BP 147/65; BP 152/79; PULSE 80; RESP 16; TEMP 36.1; O2SAT 95
[2018-03-20 13:45] VITALS: BP 147/65; BP 150/76; PULSE 78; RESP 16; O2SAT 93
[2018-03-20 14:00] VITALS: BP 147/65; BP 152/77; PULSE 74; RESP 16; O2SAT 93
[2018-03-20 14:15] VITALS: BP 128/72; BP 147/65; PULSE 72; RESP 16; O2SAT 93
[2018-03-20 16:01] VITALS: BP 147/65; BP 151/66; PULSE 78; RESP 16; TEMP 36.4; O2SAT 96
== END 2018-03-20 16:04 | disposition home or self-care (01) ==
LOC: SDC 09:43 → AC 10:23
PROVIDERS: Surgery; Family Provider Family Medicine; PCP Family Medicine; Referring Provider Otolaryngology; Visit Provider Otolaryngology
PROC: (CPT 10021; principal; 2018-03-20 11:45)
PROC: (CPT 36561; 2018-03-20 11:45)
DX: J38.01 Paralysis of vocal cords and larynx, unilateral (principal); C44.42 Squamous cell carcinoma of skin of scalp and neck; Z45.2 Encounter for adjustment and management of vascular access device; I10 Essential (primary) hypertension; J44.9 Chronic obstructive pulmonary disease, unspecified; E78.00 Pure hypercholesterolemia, unspecified; E05.90 Thyrotoxicosis, unspecified without thyrotoxic crisis or storm; F41.9 Anxiety disorder, unspecified; Z85.828 Personal history of other malignant neoplasm of skin; Z79.82 Long term (current) use of aspirin; Z79.899 Other long term (current) drug therapy; Z77.22 Contact with and (suspected) exposure to environmental tobacco smoke (acute) (chronic); Z80.0 Family history of malignant neoplasm of digestive organs
CPT/HCPCS: 00320; 10021; 31535; 31570; 36561; 71045; 71046; 77001; 88108; 88305; 88313; 88341; 88342; 93005; J7120; J2405

== ENCOUNTER 2018-04-21 04:08 | Inpatient (IN) | payer MEDICARE, SELFPAY ==
[2018-04-21] VITALS (19 sets, daily range): BP systolic 0–154; BP diastolic 0–75; PULSE 34–121; RESP 0–21; TEMP -17.7–37.9; O2SAT 71–100; BMI 19.5; BMI 23.0
--- NOTE | 2018-04-21 04:44 | ED.RN ---
Addendum entered by Alon Fitzgerald 04/21/18 05:19: patient placed in ER #1 Original Note: patient transfer to ICU upon arrival to [facility] patient cardiac arrest. Patient placed in ICU #1 CPR started. See code charting
--- NOTE | 2018-04-21 04:45 | EKG12_ITS ---
Test Reason : RHYTHM CHANGE Blood Pressure : / mmHG Vent. Rate : 112 BPM Atrial Rate : 112 BPM P-R Int : 130 ms QRS Dur : 102 ms QT Int : 360 ms P-R-T Axes : 080 -69 079 degrees QTc Int : 491 ms Sinus tachycardia with frequent Premature ventricular complexes Incomplete right bundle branch block Left anterior fascicular block Possible Lateral infarct , age undetermined Abnormal ECG Confirmed by MARIUM LOMELI ([id number]), non linear editor TONYA CARREON ([id number]) on 04/26/2018 2:37:24 PM Referred By: Lanette Dow Confirmed By:MARIUM LOMELI
--- NOTE | 2018-04-21 04:45 | RAD_ITS ---
STUDY: X-RAY CHEST REASON FOR EXAM: Female, 72 years old. Tube placement TECHNIQUE: Single frontal view of the chest. COMPARISON: March 20, 2018. FINDINGS: Endotracheal tube with the tip 1 cm superior to stefan. Consider 1.5 to 2 cm of retraction. The oral gastric tube tip projects over the mid esophagus. This would be approximately 24 cm from the proximal port being within the region of the gastric fundus. There is a right chest port with the tip projecting over the superior cavoatrial junction. The patient is somewhat rotated. There is contrast seen within the right renal collecting system. Correlate with any prior CT scans. The heart does not appear enlarged. There is calcified aorta. No definite pneumothorax is seen. There is gas along the left lateral chest wall. There is multiple left rib fractures. Pneumothorax cannot be totally excluded on this image. There is pulmonary vascular congestion present. Lungs appear chronic. RAD/Chest 1 View (Portable) IMPRESSION: Endotracheal tube with the tip 1 cm superior to stefan. Consider 1.5 to 2 cm of retraction. The oral gastric tube tip projects over the mid esophagus. This would be approximately 24 cm from the proximal port being within the region of the gastric fundus. Multiple left rib fractures. There is gas within the soft tissues of the left lateral chest wall. A definitive pneumothorax is not clearly seen however cannot be totally excluded given the gas in the soft tissues and rib fractures. Recommend CT scan of the chest to further evaluate. The stomach is distended. Contrast seen within the right renal collecting system. Correlate with any recent CT scanning with IV contrast. There is some widening to the right mediastinum however patient is rotated. This could be positioning however aortic pathology or mass lesion is not excluded. Correlate with prior studies versus CT scan with IV contrast. N.B. : The above information has been verbally conveyed by Petar Daniels to Dr. Joel MD, on 04/21/2018 05:49:45 (ET). Electronically Signed: Petar Daniels, at 5:20 EST Tel , Service support ,
[2018-04-21] MEDS: 0.9% Normal Saline 1,000 ML 999 ML IV (05:04)
[2018-04-21 05:11] LABS: Bedside Glucose 146 mg/dL (70-110)
--- NOTE | 2018-04-21 05:16 | PCM.HP.STD ---
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 Patient was admitted through the ED on 04/21/2018 after she was brought in cardiopulmonary arrest and a CODE BLUE was called. Patient went to [facility] this evening on account of not feeling very well and was found to be hypotensive with blood pressure going down to the 60s. She was also found to be severely neutropenic with white cell count being less than 0.5. She has been following up with Dr. Granado and so had wanted to be transferred here. At the time I spoke to the ED doctor at the [facility], patient's blood pressure was 90/32 when she was on her third liter of IV fluids. She had been started on IV vancomycin and Zosyn according to the ED doctor, lactic acid was 74 mg/dL (~ 8-9mmol/L) which went down to around 50 mg/dL(5-6mmol/l) since she was hydrated with IV fluids. Decision was made to accept patient for to be managed for febrile neutropenia and septic shock. Per discussion with ED Dr. khan, patient was to be started on pressors if her blood pressure remained low and central line access was going to be by her chemotherapy port. Patient was to be admitted in the ICU. However, on arrival in [facility], she was rushed to the emergency department as she did not look well in the ED she was found to be in asystole. She was resuscitated per ACLS protocol and received about 6 ampoules of epinephrine as well as bicarb. She was resuscitated for a significant period of time and the code was actually called because they still could not get a return of spontaneous circulation. However after code was called, it was noted that patient had a pulse with return of spontaneous circulation and she was started on Levophed. Family was not available for CODE STATUS of patient to be discussed with family. Decision was therefore made to admit patient to ICU for acute cardiopulmonary arrest and septic shock. [] Past Medical History Past Medical History (Chronic Problems): Chronic Problems (Last Updated 02/21/18 @ 16:04 by Magnolia Lopez) HTN (hypertension) (Chronic) Medical History: Medical History (Last Updated 02/21/18 @ 16:04 by Magnolia Loepz) family history of colon cancer in sister (Acute) Family history of breast cancer in sister (Acute) Z80.3 History of skin cancer (Acute) Z85.828 History of hysterectomy (Acute) Z90.710 Thyroid nodule (Acute) E04.1 COPD (chronic obstructive pulmonary disease) (Acute) J44.9 Hemorrhoid (Acute) K64.9 Anxiety (Acute) F41.9 CAD (coronary artery disease) (Acute) I25.10 HTN (hypertension) (Chronic) I10 Osteoarthritis (Acute) M19.90 Supraclavicular mass (Acute) R22.2 Allergies RASHEL Inhibitors Adverse Reaction (Verified 04/21/18 04:47) Other levofloxacin [From Levaquin] Adverse Reaction (Verified 04/21/18 04:47) Rash Home Medications: Ambulatory Orders Medication Instructions Recorded Amlodipine [Norvasc] 5 mg PO DAILY 11/07/17 Ascorbic Acid [Vitamin C] 1,000 mg PO PRN PRN 11/07/17 Aspirin [Aspirin, Baby] 81 mg PO DAILY@0800 11/07/17 Atorvastatin Calcium [Lipitor] 40 mg PO QHS 11/07/17 Budesonide/Formoterol 80-4.5 1 puff IN BID 11/07/17 [Symbicort 80-4.5 Mcg Inhaler] Calcium Carbonate/Vitamin D3 1 each PO DAILY 11/07/17 [Calcium 600-Vit D3 800 Tablet] Hydrochlorothiazide [Hctz] 25 mg PO DAILY 11/07/17 Lorazepam [Ativan] 1 mg PO BID 11/07/17 Methimazole [Tapazole] 5 mg PO DAILY 11/07/17 Metoprolol Succinate [Toprol Xl] 50 mg PO DAILY 11/07/17 [place]-3 Fatty Acids [Fish Oil] 500 mg PO DAILY 11/07/17 Potassium Chloride [K-Dur] 20 meq PO DAILY 11/07/17 Tiotropium [place] [Spiriva] 1 puff IH DAILY 11/07/17 Vitamin B Complex 1 each PO DAILY 11/07/17 Zolpidem Tartrate 5 mg PO DAILY PRN 11/07/17 Hydrocodone/Acetaminophen [[place] 1 ea PO Q4H PRN PRN 7 Days #14 tab 11/11/17 5-325 Tablet] Benzonatate [Tessalon [place]] 100 mg PO TID PRN 03/17/18 Morphine Sulfate 15 mg PO BID 03/17/18 morphine solution (IR) [Roxanol 1.3 ml PO Q4H PRN PRN 03/17/18 (IR oral solution)] Amoxicillin/Potassium Clav 1 tab PO BID 03/20/18 [Amox-Clav 875-125 mg Tablet] Surgical History: Surgical History (Last Updated 02/21/18 @ 16:01 by Magnolia Lopez) History of spinal fusion (Acute) Z98.1 History of hernia repair (Acute) Z98.890, Z87.19 History of cystoscopy (Acute) Z98.890 History of cholecystectomy (Acute) Z90.49 History of cataract extraction (Acute) Z98.49 History of cardiac cath (Acute) Z98.890 History of surgical removal of ganglion cyst (Acute) Z98.890 History of tubal ligation (Acute) Z98.51 Status post tonsillectomy and adenoidectomy (Acute) Z90.89 History of renal stent (Acute) Z98.890 Lives: Spouse/ Significant Other Smoking Status: Unknown if ever smoked - *Family History Maternal History Items: Unknown Paternal History Items: Unknown Review of Systems Unable to obtain accurate/complete ROS d/t: pateint intubated, obtunded due to cardiopulmonary arrest VTE Information - Inpt Only VTE Present on Admission: No VTE Pharm Prophylaxis ordered?: No Reason prophylaxis not ordered:: Medical Contraindication - having GI bleed through NG tube Patient Problems: Active and Suspected Problems (Last Updated 02/21/18 @ 16:04 by Magnolia Lopez) Neutropenic sepsis (Acute) Cardiopulmonary arrest with successful resuscitation (Acute) - Physical Exam General: - - patient intubated, sedated. on Ventilator HEENT: PERRLA Oral: Dry Mucosa Neck: Supple, No JVD, Negative Carotid Bruits Lungs: - - has coarse crackles in all lung [place]. Intubated Cardiovascular: Regular Rhythm, Normal S1, Normal S2, Tachycardic Abdomen: - - abdomen distended, tympanitic to percussion. no organomegaly. NG tube draining blood fluid Extremities: No clubbing, No cyanosis, No edema, Capillary Refill Less than 3 Seconds Skin: No rashes, No breakdown Musculoskeletal: No Tenderness to Palpation of Joints or Extremities Lymphatic: No Cervical, Supraclavicular, or Inguinal Adenopathy Neurological: - - patient obtunded, intubated. not sedated; RASS score is -4 Vital Signs Temp Pulse Resp BP Pulse Ox 96.5 F L 114 H 19 H 95/67 93 04/21/18 05:11 04/21/18 05:11 04/21/18 05:11 04/21/18 05:11 04/21/18 05:11 Oxygen Delivery Method Mechanical Ventilator Weight: 128 lb 15.879 oz Body Mass Index (BMI) 19.5 Finger Stick Blood Glucose 143 Laboratory Tests Past 24 Hrs 04/21/18 04/21/18 04/21/18 05:05 05:05 05:05 WBC Pending RBC Pending Hgb Pending Hct Pending MCV Pending MCH Pending MCHC Pending RDW Pending RDW Differential Pending Plt Count Pending Neut % (Auto) Pending Absolute Neuts (auto) Pending Total Counted Pending Sodium Pending Potassium Pending Chloride Pending Carbon Dioxide Pending Anion Gap Pending BUN Pending Creatinine Pending Est GFR (MDRD) Af Amer Pending Est GFR (MDRD) Non-Af Pending BUN/Creatinine Ratio Pending Glucose Pending Lactic Acid Pending Calcium Pending Total Bilirubin Pending AST Pending ALT Pending Alkaline Phosphatase Pending Troponin I Pending Total Protein Pending Albumin Pending POC Glucose 04/21/18 04:39 POC Glucose 146 H Assessment/Plan All Active Problems (Last Updated 02/21/18 @ 16:04 by Magnolia Lopez) Vocal cord paralysis (Acute) Neutropenic sepsis (Acute) Cardiopulmonary arrest with successful resuscitation (Acute) family history of colon cancer in sister (Acute) Family history of breast cancer in sister (Acute) History of skin cancer (Acute) History of spinal fusion (Acute) History of hernia repair (Acute) History of cystoscopy (Acute) History of cholecystectomy (Acute) History of cataract extraction (Acute) History of cardiac cath (Acute) History of surgical removal of ganglion cyst (Acute) History of hysterectomy (Acute) History of tubal ligation (Acute) Status post tonsillectomy and adenoidectomy (Acute) History of renal stent (Acute) Thyroid nodule (Acute) COPD (chronic obstructive pulmonary disease) (Acute) Hemorrhoid (Acute) Anxiety (Acute) CAD (coronary artery disease) (Acute) Osteoarthritis (Acute) Supraclavicular mass (Acute) 72 y/o female being admitted as a direct transfer from [facility] for septic shock due to possible aspiration pneumonia. On admission was under related to the ED and found to be in asystole and managed for acute cardiopulmonary arrest. Subsequently had return of spontaneous circulation.\ 1. Acute cardiopulmonary arrest due to septic shock from febrile neutropenia was in asystole in ED and was successfully resuscitated per ACLS protocol. Received ~ 6 ampoules of epinephrine and also received bicarb currently intubated. on levophed for vasopressor support via the chemotherapy port lactic acid in [facility] was ~ 8; and came down to ~ [address] abdomen in [facility]: 3cm right liver lobe lesion, 1.2cm CBD dilatation, mild free fluid, bilateral renal artery stenosis bilaterally, moderate left hydronephrosis, colonic wall thickening espectially right sided colon with pericolonic stranding, small bowel thickening CT chest from [facility]: soft tissue mass of left neck medially displacing left common carotid artery, no PE, bronchiectasis with bronchial impactin of right middle lung and small right pleural effusion with minimal atelctatsis admit to ICU continue vasopressor support with levophed check CBC, BMP, Mg, troponin and lactic acid community life director consult get 2D echo 2. Septic shock due to febrile neutropenia, likely from aspiration pneumonia BP was in 60s in [facility]; went up to the 90s over 30s after being administered 3 L of fluids. Blood pressure currently in the 150s systolic on account of patient being on Levophed. Titrate Levophed as needed to maintain MAP more than 65 blood cultures obtained CBC pending; CBC done in [place] showed white cell count <0.5 patient during intubation had copious bloody aspirate from trachea; NG tube draining bloody fluid received one dose of IV vancomycin and IV zosyn in [facility] will continue IV vancomycin and IV zosyn community life director consult; ID consult 3. Aspiration pneumonia: as under 2 4. GI bleed of unknown etiology NG tube draining very bloody fluid. Differentials include mesenteric ischemia and bowel infarctin in light of hypotension and elevated lactic acid on levophed; keep MAP>75 IV PPI. 5. LActic acidosis: lactic acid is 11. Was elevated ~ 8 in [place] and trended down to ~ 5 with IVF administration currently on IV levophed, with MAP target of >65 will repeat per sepsis protocol 6. NSTEMi: troponin is 1. NO acute EKG changes. CPR will also have caused increase in troponin. Will cycle troponin and consult cardiology 7. Anion gap acidosis likely due to lactic acidosis bicarb is 14, with anion gap of 21. will hydrate and monitor. also on pressors. 8. HORTENSIA: cr is 1.79; no baseline in EMR. Hydrate and monitor 9. recently diagnosed squamous cell cancer of unknown primary follows with Dr Kendall- Dr Granado covering started chemotherapy just ~ 1 week ago; will consult oncology 10. Hypertension: hold home BP meds o/a of septic shock 11. Hyperlipidemia: on statin 12. Thrombocytopenia:Platelets are 130. Likely due to effect of chemo. Will monitor 13. Hypocalcemia; calcium is 6.4. Albumin is 0.8. Corrected for albumin, calcium is 9. Will replace calcium with 1gram of calcium gluconate and check mg level. 12. Anemia: Hb is 8.8. Likely due to acute blood loss as she is bleeding from NG tube. Will monitor. Transfuse If Hb falls to <7 14. Malnutrition: albumin is only 0.8; this is likely due to protein calorie malnutrition from patient's cancer. Nutrition consult 15. Multiple left rib fractures; due to CPR. Gas within soft tissues of left lateral chest wall; definite pneumothorax not seen but cannot be totally excluded due to gas in soft tissues. \to consider getting chest CT to further evaluate DVT prophylaxis; SCDs. No anticoagulation o/a of GI bleed GI prophylaxis; PPI Code status; no CODE STATUS on file. Patient currently obtunded and intubated and sedated and so cannot communicate CODE STATUS. Unable to get through the family now. Will maintain full code for now; to discuss code status with family when we are able to contact them. Code Visit Inpatient E&M: 67725 Init Hosp L3 Procedures: 83123 Critial Care 1st Hr
--- NOTE | 2018-04-21 05:20 | ED.RN ---
patient contacted and will be in to see patient
[2018-04-21 05:21] LABS: Absolute Lymphocyte Count 0.46 X10^3/ul (0.83-4.51); Hematocrit 27.2 % (37-47); Hemoglobin 8.8 g/dl (12.0-15.0); Lymphocyte # 0.46 X10^3/ul (4.0); Lymphocyte % 88.5 % (19-41); Mean Corp Hgb Conc 32.4 g/gl (32-36); Mean Corpuscular Hgb 29.4 pg (27.0-32.0); Mean Platelet Vol. 10.8 fl (6.2-12.0); Monocyte# 0.04 X10^3/uL; Monocyte% 7.7 % (0-10); Neutrophil # 0.02 X10^3/uL (2.7-7.7); Neutrophil % 3.8 % (47-70); Platelet Count 130 K/mm3 (150-450); RBC Distribution Width CV 13.3 % (11.6-14.6); RBC Distribution Width SD 42.9 fl (35.1-43.9); Red Blood Count 2.99 M/mm3 (4.2-5.4)
--- NOTE | 2018-04-21 05:22 | HP.PCM_ITS ---
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 Patient was admitted through the ED on 04/21/2018 after she was brought in cardiopulmonary arrest and a CODE BLUE was called. Patient went to [facility] this evening on account of not feeling very well and was found to be hypotensive with blood pr essure going down to the 60s. She was also found to be severely neutropenic with white cell count being less than 0.5. She has been following up with Dr. Granado and so had wanted to be transferred here. At the time I spoke to the ED doctor at the [facility], patient's blood pressure was 90/32 when she was on her third liter of IV fluids. She had been started on IV vancomycin and Zosyn according to the ED doctor, lactic acid was 74 mg/dL (~ 8-9mmol/L) which went down to around 50 mg/dL(5-6mmol/l) since she was hydrated with IV fluids. Decision was made to accept patient for to be managed for febrile neutropenia and septic shock. Per discussion with ED Dr. khan, patient was to be started on pressors if her blood pressure remained low and central line access was going to be by her chemotherapy port. Patient was to be admitted in the ICU. However, on arrival in [facility], she was rushed to the emergency department as she did not look well in the ED she was found to be in asystole. She was resuscitated per ACLS protocol and received about 6 ampoules of epinephrine as well as bicarb. She was resuscitated for a significant period of time and the code was actually called because they still could not get a return of spontaneous circulation. However after code was called, it was noted that patient had a pulse with return of spontaneous circulation and she was started on Levophed. Family was not available for CODE STATUS of patient to be discussed with family. Decision was therefore made to admit patient to ICU for acute cardiopulmonary arrest and septic shock. [] Past Medical History Past Medical History (Chronic Problems): Chronic Problems (Last Updated 02/21/18 @ 16:04 by Magnolia Lopez) HTN (hypertension) (Chronic) Medical History: Medical History (Last Updated 02/21/18 @ 16:04 by Magnolia Lopez) family history of colon cancer in sister (Acute) Family history of breast cancer in sister (Acute) Z80.3 History of skin cancer (Acute) Z85.828 History of hysterectomy (Acute) Z90.710 Thyroid nodule (Acute) E04.1 COPD (chronic obstructive pulmonary disease) (Acute) J44.9 Hemorrhoid (Acute) K64.9 Anxiety (Acute) F41.9 CAD (coronary artery disease) (Acute) I25.10 HTN (hypertension) (Chronic) I10 Osteoarthritis (Acute) M19.90 Supraclavicular mass (Acute) R22.2 Allergies RASHEL Inhibitors Adverse Reaction (Verified 04/21/18 04:47) Other levofloxacin [From Levaquin] Adverse Reaction (Verified 04/21/18 04:47) Rash Home Medications: Ambulatory Orders Medication Instructions Recorded Amlodipine [Norvasc] 5 mg PO DAILY 11/07/17 Ascorbic Acid [Vitamin C] 1,000 mg PO PRN PRN 11/07/17 Aspirin [Aspirin, Baby] 81 mg PO DAILY@0800 11/07/17 Atorvastatin Calcium [Lipitor] 40 mg PO QHS 11/07/17 Budesonide/Formoterol 80-4.5 1 puff IN BID 11/07/17 [Symbicort 80-4.5 Mcg Inhaler] Calcium Carbonate/Vitamin D3 1 each PO DAILY 11/07/17 [Calcium 600-Vit D3 800 Tablet] Hydrochlorothiazide [Hctz] 25 mg PO DAILY 11/07/17 Lorazepam [Ativan] 1 mg PO BID 11/07/17 Methimazole [Tapazole] 5 mg PO DAILY 11/07/17 Metoprolol Succinate [Toprol Xl] 50 mg PO DAILY 11/07/17 Liberal-3 Fatty Acids [Fish Oil] 500 mg PO DAILY 11/07/17 Potassium Chloride [K-Dur] 20 meq PO DAILY 11/07/17 Tiotropium [place] [Spiriva] 1 puff IH DAILY 11/07/17 Vitamin B Complex 1 each PO DAILY 11/07/17 Zolpidem Tartrate 5 mg PO DAILY PRN 11/07/17 Hydrocodone/Acetaminophen [[place] 1 ea PO Q4H PRN PRN 7 Days #14 tab 07/13/18 5-325 Tablet] Benzonatate [Tessalon Perle] 100 mg PO TID PRN 03/17/18 Morphine Sulfate 15 mg PO BID 03/17/18 morphine solution (IR) [Roxanol 1.3 ml PO Q4H PRN PRN 03/17/18 (IR oral solution)] Amoxicillin/Potassium Clav 1 tab PO BID 03/20/18 [Amox-Clav 875-125 mg Tablet] Surgical History: Surgical History (Last Updated 02/21/18 @ 16:01 by Magnolia Lopez) History of spinal fusion (Acute) Z98.1 History of hernia repair (Acute) Z98.890, Z87.19 History of cystoscopy (Acute) Z98.890 History of cholecystectomy (Acute) Z90.49 History of cataract extraction (Acute) Z98.49 History of cardiac cath (Acute) Z98.890 History of surgical removal of ganglion cyst (Acute) Z98.890 History of tubal ligation (Acute) Z98.51 Status post tonsillectomy and adenoidectomy (Acute) Z90.89 History of renal stent (Acute) Z98.890 Lives: Spouse/ Significant Other Smoking Status: Unknown if ever smoked - *Family History Maternal History Items: Unknown Paternal History Items: Unknown Review of Systems Unable to obtain accurate/complete ROS d/t: pateint intubated, obtunded due to cardiopulmonary arrest VTE Information - Inpt Only VTE Present on Admission: No VTE Pharm Prophylaxis ordered?: No Reason prophylaxis not ordered:: Medical Contraindication - having GI bleed through NG tube Patient Problems: Active and Suspected Problems (Last Updated 02/21/18 @ 16:04 by Magnolia Lopez) Neutropenic sepsis (Acute) Cardiopulmonary arrest with successful resuscitation (Acute) - Physical Exam General: - - patient intubated, sedated. on Ventilator HEENT: PERRLA Oral: Dry Mucosa Neck: Supple, No JVD, Negative Carotid Bruits Lungs: - - has coarse crackles in all lung barclay. Intubated Cardiovascular: Regular Rhythm, Normal S1, Normal S2, Tachycardic Abdomen: - - abdomen distended, tympanitic to percussion. no organomegaly. NG tube draining blood fluid Extremities: No clubbing, No cyanosis, No edema, Capillary Refill Less than 3 Seconds Skin: No rashes, No breakdown Musculoskeletal: No Tenderness to Palpation of Joints or Extremities Lymphatic: No Cervical, Supraclavicular, or Inguinal Adenopathy Neurological: - - patient obtunded, intubated. not sedated; RASS score is -4 Vital Signs Temp Pulse Resp BP Pulse Ox 96.5 F L 114 H 19 H 95/67 93 04/21/18 05:11 04/21/18 05:11 04/21/18 05:11 04/21/18 05:11 04/21/18 05:11 Oxygen Delivery Method Mechanical Ventilator Weight: 128 lb 15.879 oz Body Mass Index (BMI) 19.5 Finger Stick Blood Glucose 143 Laboratory Tests Past 24 Hrs 04/21/18 04/21/18 04/21/18 05:05 05:05 05:05 WBC Pending RBC Pending Hgb Pending Hct Pending MCV Pending MCH Pending MCHC Pending RDW Pending RDW Differential Pending Plt Count Pending Neut % (Auto) Pending Absolute Neuts (auto) Pending Total Counted Pending Sodium Pending Potassium Pending Chloride Pending Carbon Dioxide Pending Anion Gap Pending BUN Pending Creatinine Pending Est GFR (MDRD) Af Amer Pending Est GFR (MDRD) Non-Af Pending BUN/Creatinine Ratio Pending Glucose Pending Lactic Acid Pending Calcium Pending Total Bilirubin Pending AST Pending ALT Pending Alkaline Phosphatase Pending Troponin I Pending Total Protein Pending Albumin Pending POC Glucose 04/21/18 04:39 POC Glucose 146 H Assessment/Plan All Active Problems (Last Updated 02/21/18 @ 16:04 by Magnolia Lopez) Vocal cord paralysis (Acute) Neutropenic sepsis (Acute) Cardiopulmonary arrest with successful resuscitation (Acute) family history of colon cancer in sister (Acute) Family history of breast cancer in sister (Acute) History of skin cancer (Acute) History of spinal fusion (Acute) History of hernia repair (Acute) History of cystoscopy (Acute) History of cholecystectomy (Acute) History of cataract extraction (Acute) History of cardiac cath (Acute) History of surgical removal of ganglion cyst (Acute) History of hysterectomy (Acute) History of tubal ligation (Acute) Status post tonsillectomy and adenoidectomy (Acute) History of renal stent (Acute) Thyroid nodule (Acute) COPD (chronic obstructive pulmonary disease) (Acute) Hemorrhoid (Acute) Anxiety (Acute) CAD (coronary artery disease) (Acute) Osteoarthritis (Acute) Supraclavicular mass (Acute) 72 y/o female being admitted as a direct transfer from [facility] for septic shock due to possible aspiration pneumonia. On admission was under related to the ED and found to be in asystole and managed for acute cardio pulmonary arrest. Subsequently had return of spontaneous circulation.\ 1. Acute cardiopulmonary arrest due to septic shock from febrile neutropenia * was in asystole in ED and was successfully resuscitated per ACLS protocol. Received ~ 6 ampoules of epinephrine and also received bicarb * currently intubated. on levophed for vasopressor support via the chemotherapy port * lactic acid in [facility] was ~ 8; and came down to ~ 5 with IVF administration * CT abdomen in [facility]: 3cm right liver lobe lesion, 1.2cm CBD dilatation, mild free fluid, bilateral renal artery stenosis bilaterally, moderate left hydronephrosis, colonic wall thickening espectially right sided colon with pericolonic stranding, small bowel thickening * CT chest from [facility]: soft tissue mass of left neck medially displacing left common carotid artery, no PE, bronchiectasis with bronchial impactin of right middle lung and small right pleural effusion with minimal atelctatsis * admit to ICU * continue vasopressor support with levophed * check CBC, BMP, Mg, troponin and lactic acid * director report consult * get 2D echo * 2. Septic shock due to febrile neutropenia, likely from aspiration pneumonia * BP was in 60s in [facility]; went up to the 90s over 30s after being administered 3 L of fluids. * Blood pressure currently in the 150s systolic on account of patient being on Levophed. * Titrate Levophed as needed to maintain MAP more than 65 * blood cultures obtained * CBC pending; CBC done in [place] showed white cell count <0.5 * patient during intubation had copious bloody aspirate from trachea; NG tube draining bloody fluid * received one dose of IV vancomycin and IV zosyn in [facility] * will continue IV vancomycin and IV zosyn * director report consult; ID consult * 3. Aspiration pneumonia: as under 2 4. GI bleed of unknown etiology * NG tube draining very bloody fluid. Differentials include mesenteric ischemia and bowel infarctin in light of hypotension and elevated lactic acid * on levophed; keep MAP>75 * IV PPI. 5. LActic acidosis: * lactic acid is 11. * Was elevated ~ 8 in [place] and trended down to ~ 5 with IVF administration * currently on IV levophed, with MAP target of >65 * will repeat per sepsis protocol 6. NSTEMi: troponin is 1. NO acute EKG changes. CPR will also have caused increase in troponin. Will cycle troponin and consult cardiology 7. Anion gap acidosis likely due to lactic acidosis * bicarb is 14, with anion gap of 21. * will hydrate and monitor. also on pressors. 8. HORTENSIA: cr is 1.79; no baseline in EMR. Hydrate and monitor 9. recently diagnosed squamous cell cancer of unknown primary * follows with Dr Kendall- Dr Granado covering * started chemotherapy just ~ 1 week ago; * will consult oncology * 10. Hypertension: hold home BP meds o/a of septic shock 11. Hyperlipidemia: on statin 12. Thrombocytopenia:Platelets are 130. Likely due to effect of chemo. Will monitor 13. Hypocalcemia; calcium is 6.4. Albumin is 0.8. Corrected for albumin, calcium is 9. Will replace calcium with 1gram of calcium gluconate and check mg level. 12. Anemia: Hb is 8.8. Likely due to acute blood loss as she is bleeding from NG tube. Will monitor. Transfuse If Hb falls to <7 14. Malnutrition: albumin is only 0.8; this is likely due to protein calorie malnutrition from patient's cancer. Nutrition consult 15. Multiple left rib fractures; * due to CPR. Gas within soft tissues of left lateral chest wall; * definite pneumothorax not seen but cannot be totally excluded due to gas in soft tissues. * \to consider getting chest CT to further evaluate DVT prophylaxis; SCDs. No anticoagulation o/a of GI bleed GI prophylaxis; PPI Code status; no CODE STATUS on file. Patient currently obtunded and intubated and sedated and so cannot communicate CODE STATUS. Unable to get through the family now. Will maintain full code for now; to discuss code status with family when we are able to contact them. Code Visit Inpatient E&M: 13671 Init Hosp L3 Procedures: 05596 Critial Care 1st Hr
--- NOTE | 2018-04-21 05:29 | ED.DCSUM_ITS ---
- ER Visit Summary Date of Service: 04/21/18 Chief Complaint: Cardiopulmonary arrest History of Present Illness: The patient is a 72 F who presents from [facility] with cardiopulmonary arrest. She was to be transferred to the ICU for neutropenic sepsis. When the transfer paramedics came to the emergency department patient's blood pressure decreased and there was no radial or carotid pulse. Patient was on a Levophed drip. There was a question whether or not patient had a advanced directive or DNR. There was no paperwork for an advanced directive or DNR. Patient was then transferred to the emergency department cot and CPR was initiated. Physical Examination: Vital signs showed a blood pressure of 0/0, no heart rate, and no spontaneous respirations. There were no heart tones auscultated. There are no breath sounds auscultated. Abdomen was soft. Patient was unresponsive. Pupils were nonreactive. CPR was initiated. Test Results: Chest x-ray showed endotracheal tube to be approximately 1 cm above the stefan. There is no infiltrate noted. EKG showed sinus tachycardia with a rate of 112 with frequent PVCs. There is a right bundle branch block and left anterior hemiblock. Emergency Department Course and Treatment: CPR was initiated patient was given epinephrine 1 mg IV initially and 1 amp of bicarb IV initially. CPR was continued. Patient was given 4 more subsequent doses of epinephrine. Patient remained in asystole on the monitor. There are no pulses palpated. CPR was stopped. On reevaluation the patient was noted to have carotid pulses. Patient was placed back on a monitor. Patient had a second-degree heart block then went back to a sinus tachycardia. Levophed was maintained wide open. Initial labs were ordered. Case was discussed with Dr. Dow. She was in to evaluate the patient and will admit the patient to ICU. Disposition: Admit to ICU Impression: 1. Neutropenic sepsis 2. Cardiopulmonary arrest 3. Critical care time 30-74 minutes This note was generated with Spool dictation software. It may contain incorrect words, spelling, and punctuation that were not noted in review of the chart prior to signing ED Disposition - Plan for ED Patient: Disposition: Acute Care [facility] Chief Complaint: CPR Diagnosis: Neutropenic sepsis, Cardiopulmonary arrest with successful resuscitation Referrals: Dontae Segundo MD [Primary Care Provider] -
[2018-04-21 05:38] LABS: Lactic Acid 11.4 mmol/L (0.4-2.0)
[2018-04-21 05:43] LABS: ALB/GLOB Ratio 0.5 RATIO (0.9-2.4); AST(SGOT) 1246 U/L (15-37); Alanine Aminotransfer ALT/SGPT 962 U/L (13-56); Albumin, Serum 0.8 g/dL (3.2-5.0); Alkaline Phosphatase 44 U/L (45-117); Anion Gap 21 (5-15); BUN 21 mg/dL (7-18); BUN/Creat Ratio 11.7 RATIO (10-20); Calcium,Total 6.4 mg/dL (8.5-10.1); Chloride 106 mmol/L (98-107); Creatinine, Serum 1.79 mg/dL (0.55-1.02); EST Glomerular Filtration Rate 29 mL/min (>60); Est Glom Filt Rate - Afr Amer 36 mL/min (>60); Estimated Creatinine Clearance 25.85 ml/min; Globulin 1.7 g/dL (2.2-4.2); Glucose 222 mg/dL (74-106); Potassium 4.2 mmol/L (3.5-5.1); Protein, Total 2.5 g/dL (6.4-8.2); Sodium Level 141 mmol/L (136-145)
[2018-04-21 05:52] LABS: Differential Indicated SCAN CRITERIA MET; POSITIVE COUNT YES; POSITIVE DIFFERENTIAL YES; POSITIVE MORPHOLOGY NO; White Blood Count 0.5 K/mm3 (4.4-11.0)
[2018-04-21] MEDS: Sodium Bicarbonate 8.4% 50 ML Syringe 50 MEQ IV (06:11)
--- NOTE | 2018-04-21 06:25 | PCM.RX.CS ---
Consult Pharmacy has been consulted to manage selected antiobiotic: Vancomycin Type of Consult: New start Labs: Sodium 141 mmol/L (136-145) 04/21/18 05:05 Potassium 4.2 mmol/L (3.5-5.1) 04/21/18 05:05 Chloride 106 mmol/L (98-107) 04/21/18 05:05 Carbon Dioxide 14.0 mmol/L (21.0-32.0) L 04/21/18 05:05 Anion Gap 21 (5-15) H 04/21/18 05:05 BUN 21 mg/dL (7-18) H 04/21/18 05:05 Creatinine 1.79 mg/dL (0.55-1.02) H 04/21/18 05:05 Est GFR (MDRD) Af Amer 36 mL/min (>60) L 04/21/18 05:05 Est GFR (MDRD) Non-Af 29 mL/min (>60) L 04/21/18 05:05 BUN/Creatinine Ratio 11.7 RATIO (10-20) 04/21/18 05:05 Glucose 222 mg/dL (74-106) H 04/21/18 05:05 Weight used for dosin.8 kg Estimated Creatinine Clearance: 25.85 Goal Trough: 15-20 mcg/mL Pharmacy Plan for Drug Dosing: Pharmacy Service will continue to monitor and adjust dosing as required. Medications Vancomycin HCl 750 mg/ Sodium (Chloride) 265 mls @ 250 mls/hr IV Q24H ROSALBA Vancomycin HCl (Vancomycin) 1,000 mg in 200 mls @ 200 mls/hr IV X1 ONE Stop: 04/21/18 07:29 Follow-Up Labs: Trough Vancomycin Labs to be done on [date and time ordered]: 04/23 @ 8979
[2018-04-21 07:15] LABS: Magnesium 1.6 mg/dL (1.6-2.6)
--- NOTE | 2018-04-21 07:15 | PCM.HOSP.N ---
Hospitalist Note Active Medications Norepinephrine Bitartrate 16 (mg/ Dextrose) 266 mls @ 4.99 mls/hr IV .[id number] [facility] Last Admin: 04/21/18 04:57 Dose: 4.99 mls/hr Vasopressin 40 units/ Sodium (Chloride) 52 mls @ 3.12 mls/hr IV .[id number] [facility] Last Admin: 04/21/18 05:34 Dose: 3.12 mls/hr Piperacillin Sod/Tazobactam Sod (Zosyn) 3.375 gm in 50 mls @ 12.5 mls/hr IV Q8 [facility] Vancomycin IV Pharmacy to Dose (1 ea/ Sodium Chloride) 500 mls @ 250 mls/hr IV X1 PRN; Protocol PRN Reason: Rx to Dose Norepinephrine Bitartrate 8 mg (/ Dextrose) 258 mls @ 9.68 mls/hr IV .[id number] [facility] Vancomycin HCl (Vancomycin) 1,000 mg in 200 mls @ 200 mls/hr IV X1 ONE Stop: 04/21/18 07:29 Vancomycin HCl 750 mg/ Sodium (Chloride) 265 mls @ 250 mls/hr IV Q24H [facility] Calcium Gluconate 2 gm/ (Dextrose) 120 mls @ 60 mls/hr IV X1 ONE Stop: 04/21/18 09:29 Magnesium Hydroxide (Milk Of Magnesia) 30 ml PO DAILY PRN PRN PRN Reason: Constipation Tbo-Filgrastim (Granix) 300 mcg SC DAILY [facility] Laboratory Results 04/21/18 04:39: POC Glucose 146 H 04/21/18 05:05: WBC 0.5 L*, RBC 2.99 L, Hgb 8.8 L, Hct 27.2 L, MCV 91.0, MCH 29.4, MCHC 32.4, RDW 13.3, RDW Differential 42.9, Plt Count 130 L, MPV 10.8, Immature Gran % (Auto) 0.000, Neut % (Auto) 3.8 L, Lymph % (Auto) 88.5 H, [place] % (Auto) 7.7, Eos % (Auto) 0.0, Baso % (Auto) 0.0, Absolute Neuts (auto) 0.0 L, Absolute Lymphs (auto) 0.46 L, Total Counted Not Reportable, Diff Path Review August04/21/18 05:05: Sodium 141, Potassium 4.2, Chloride 106, Carbon Dioxide 14.0 L, Anion Gap 21 H, BUN 21 H, Creatinine 1.79 H, Estim Creat Clear Calc 25.85, Est GFR (MDRD) Af Amer 36 L, Est GFR (MDRD) Non-Af 29 L, BUN/Creatinine Ratio 11.7, Glucose 222 H, Calcium 6.4 L*, Total Bilirubin 0.40, AST 1246 H, ALT 962 H, Alkaline Phosphatase 44 L, Troponin I 1.000 H*, Total Protein 2.5 L, Albumin 0.8 L, Globulin 1.7 L, Albumin/Globulin Ratio 0.5 L 04/21/18 05:05: Lactic Acid 11.4 H* 04/21/18 05:21: Magnesium Pending Clinical Impression(s) from Imaging Studies Chest X-Ray 04/21/18 04:45 IMPRESSION: Endotracheal tube with the tip 1 cm superior to stefan. Consider 1.5 to 2 cm of retraction. The oral gastric tube tip projects over the mid esophagus. This would be approximately 24 cm from the proximal port being within the region of the gastric fundus. Multiple left rib fractures. There is gas within the soft tissues of the left lateral chest wall. A definitive pneumothorax is not clearly seen however cannot be totally excluded given the gas in the soft tissues and rib fractures. Recommend CT scan of the chest to further evaluate. The stomach is distended. Contrast seen within the right renal collecting system. Correlate with any recent CT scanning with IV contrast. There is some widening to the right mediastinum however patient is rotated. This could be positioning however aortic pathology or mass lesion is not excluded. Correlate with prior studies versus CT scan with IV contrast. N.B. : The above information has been verbally conveyed by Petar Daniels to Dr. Joel MD, on 04/21/2018 05:49:45 (ET).
--- NOTE | 2018-04-21 07:27 | PCM.CON.CC ---
Reason for Consult Date of Consultation: 04/21/18 Reason for Consultation: Acute respiratory failure/cardiac arrest History of Present Illness: The patient is a 72-year-old female, with a history as outlined below, who initially presented as a direct transfer from [facility] with severe sepsis/neutropenic fever. Prior to her transfer, the patient did receive supplemental IV fluids and broad-spectrum antibiotics at the outside facility. Per account, the patient became less responsive while in route to our facility. Rather than being direct admitted to the ICU, the patient was taken to the emergency department for evaluation. Shortly after her arrival there, the patient reportedly became pulseless. A CODE BLUE was called and ACLS was initiated. The patient received multiple rounds of epinephrine. Despite this, return of spontaneous circulation could not be achieved. Therefore, resuscitative efforts were terminated. However, shortly after calling the code, the patient spontaneously had a return of circulation. She remained significantly hypotensive and had to be initiated on Levophed therapy. She was subsequently transferred to the medical intensive care unit. On her arrival to our ICU, the patient was on maximal dose of levophed. Vasopressin was then started in an attempt to maintain hemodynamic stability. In addition, the patient was noted to be hypoxic despite being on maximal ventilatory support. Amidst all of this, the patient's arrived to the ICU. He was updated on the patient's status at the bedside. Despite maximal medical therapy, the patient continued to deteriorate clinically. Following a discussion regarding goals of care with the patient's , the decision was made to transition her to DNR CCA. Shortly after this, the patient's pulse was lost. She was found to be in pulseless electrical activity. Per request, ventilatory support was discontinued and the patient's endotracheal tube was removed. Asystole was subsequently noted on the patient's quality assurance monitor body, with time of being called at 0746 on April 21, 2018. Past Medical History Past Medical History (Chronic Problems): Chronic Problems (Last Updated 02/21/18 @ 16:04 by Magnolia Lopez) HTN (hypertension) (Chronic) Medical History: Medical History (Last Updated 02/21/18 @ 16:04 by Magnolia Lopez) family history of colon cancer in sister (Acute) Family history of breast cancer in sister (Acute) Z80.3 History of skin cancer (Acute) Z85.828 History of hysterectomy (Acute) Z90.710 Thyroid nodule (Acute) E04.1 COPD (chronic obstructive pulmonary disease) (Acute) J44.9 Hemorrhoid (Acute) K64.9 Anxiety (Acute) F41.9 CAD (coronary artery disease) (Acute) I25.10 HTN (hypertension) (Chronic) I10 Osteoarthritis (Acute) M19.90 Supraclavicular mass (Acute) R22.2 Allergies RASHEL Inhibitors Adverse Reaction (Verified 04/21/18 04:47) Other levofloxacin [From Levaquin] Adverse Reaction (Verified 04/21/18 04:47) Rash Home Medications: Ambulatory Orders Medication Instructions Recorded Amlodipine [Norvasc] 5 mg PO DAILY 11/07/17 Ascorbic Acid [Vitamin C] 1,000 mg PO PRN PRN 11/07/17 Aspirin [Aspirin, Baby] 81 mg PO DAILY@0800 11/07/17 Atorvastatin Calcium [Lipitor] 40 mg PO QHS 11/07/17 Budesonide/Formoterol 80-4.5 1 puff IN BID 11/07/17 [Symbicort 80-4.5 Mcg Inhaler] Calcium Carbonate/Vitamin D3 1 each PO DAILY 11/07/17 [Calcium 600-Vit D3 800 Tablet] Hydrochlorothiazide [Hctz] 25 mg PO DAILY 11/07/17 Lorazepam [Ativan] 1 mg PO BID 11/07/17 Methimazole [Tapazole] 5 mg PO DAILY 11/07/17 Metoprolol Succinate [Toprol Xl] 50 mg PO DAILY 11/07/17 Darling-3 Fatty Acids [Fish Oil] 500 mg PO DAILY 11/07/17 Potassium Chloride [K-Dur] 20 meq PO DAILY 11/07/17 Tiotropium [place] [Spiriva] 1 puff IH DAILY 11/07/17 Vitamin B Complex 1 each PO DAILY 11/07/17 Zolpidem Tartrate 5 mg PO DAILY PRN 11/07/17 Hydrocodone/Acetaminophen [[place] 1 ea PO Q4H PRN PRN 7 Days #14 tab 11/11/17 5-325 Tablet] Benzonatate [Tessalon Perle] 100 mg PO TID PRN 03/17/18 Morphine Sulfate 15 mg PO BID 03/17/18 morphine solution (IR) [Roxanol 1.3 ml PO Q4H PRN PRN 03/17/18 (IR oral solution)] Amoxicillin/Potassium Clav 1 tab PO BID 03/20/18 [Amox-Clav 875-125 mg Tablet] Surgical History: Surgical History (Last Updated 02/21/18 @ 16:01 by Magnolia Lopez) History of spinal fusion (Acute) Z98.1 History of hernia repair (Acute) Z98.890, Z87.19 History of cystoscopy (Acute) Z98.890 History of cholecystectomy (Acute) Z90.49 History of cataract extraction (Acute) Z98.49 History of cardiac cath (Acute) Z98.890 History of surgical removal of ganglion cyst (Acute) Z98.890 History of tubal ligation (Acute) Z98.51 Status post tonsillectomy and adenoidectomy (Acute) Z90.89 History of renal stent (Acute) Z98.890 Lives: Spouse/ Significant Other Smoking Status: Unknown if ever smoked - *Family History Maternal History Items: Unknown Paternal History Items: Unknown Review of Systems Unable to obtain accurate/complete ROS d/t: Due to current intubation and mechanical ventilation status Patient Problems: Active and Suspected Problems (Last Updated 02/21/18 @ 16:04 by Magnolia Lopez) Neutropenic sepsis (Acute) Cardiopulmonary arrest with successful resuscitation (Acute) Objective: The patient's most recent lab work, culture data and imaging studies have all been personally reviewed. - Physical Exam General: - - Intubated and mechanically ventilated. HEENT: Atraumatic, Normocephalic, - - Nonreactive pupils Oral: No Gingival or Mucosal Lesions/ Ulcerations, - - Endotracheal and OG tubes in place Neck: Supple, No Nodes, Trachea Midline Lungs: No rhonchi, No wheeze, Diminished, Rales Cardiovascular: Normal S1, Normal S2, No murmurs, Tachycardic Abdomen: Soft, Non Tender, Hypoactive Bowel Sounds Extremities: No clubbing, No cyanosis, Diminished Peripheral Pulses, Edema Skin: No breakdown, - - Mottling of peripheral extremities noted. Musculoskeletal: No Muscle Wasting Neurological: - - The patient is currently unresponsive to verbal and tactile stimulation. Vital Signs Temp Pulse Resp BP Pulse Ox 37.6 C H 106 H 20 H 95/67 81 04/21/18 06:30 04/21/18 06:30 04/21/18 06:30 04/21/18 06:30 04/21/18 06:30 Oxygen Delivery Method Mechanical Ventilator Weight: 134 lb 0.657 oz Body Mass Index (BMI) 23.0 Finger Stick Blood Glucose 143 Intake and Output for Last 24 Hours 04/19/18 04/20/18 04/21/18 23:59 23:59 23:59 Intake Total 964 / 964 Balance 964 / 964 Laboratory Tests Past 24 Hrs 04/21/18 04/21/18 04/21/18 05:05 05:05 05:05 WBC 0.5 L* RBC 2.99 L Hgb 8.8 L Hct 27.2 L MCV 91.0 MCH 29.4 MCHC 32.4 RDW 13.3 RDW Differential 42.9 Plt Count 130 L MPV 10.8 Immature Gran % (Auto) 0.000 Neut % (Auto) 3.8 L Lymph % (Auto) 88.5 H [place] % (Auto) 7.7 Eos % (Auto) 0.0 Baso % (Auto) 0.0 Absolute Neuts (auto) 0.0 L Absolute Lymphs (auto) 0.46 L Total Counted Not Reportable Diff Path Review May foll Sodium 141 Potassium 4.2 Chloride 106 Carbon Dioxide 14.0 L Anion Gap 21 H BUN 21 H Creatinine 1.79 H Estim Creat Clear Calc 25.85 Est GFR (MDRD) Af Amer 36 L Est GFR (MDRD) Non-Af 29 L BUN/Creatinine Ratio 11.7 Glucose 222 H Lactic Acid 11.4 H* Calcium 6.4 L* Magnesium Total Bilirubin 0.40 AST 1246 H ALT 962 H Alkaline Phosphatase 44 L Troponin I 1.000 H* Total Protein 2.5 L Albumin 0.8 L Globulin 1.7 L Albumin/Globulin Ratio 0.5 L 04/21/18 05:21 WBC RBC Hgb Hct MCV MCH MCHC RDW RDW Differential Plt Count MPV Immature Gran % (Auto) Neut % (Auto) Lymph % (Auto) [place] % (Auto) Eos % (Auto) Baso % (Auto) Absolute Neuts (auto) Absolute Lymphs (auto) Total Counted Diff Path Review Sodium Potassium Chloride Carbon Dioxide Anion Gap BUN Creatinine Estim Creat Clear Calc Est GFR (MDRD) Af Amer Est GFR (MDRD) Non-Af BUN/Creatinine Ratio Glucose Lactic Acid Calcium Magnesium 1.6 Total Bilirubin AST ALT Alkaline Phosphatase Troponin I Total Protein Albumin Globulin Albumin/Globulin Ratio POC Glucose 04/21/18 04:39 POC Glucose 146 H Clinical Impression(s) from Imaging Studies Chest X-Ray 04/21/18 04:45 IMPRESSION: Endotracheal tube with the tip 1 cm superior to stefan. Consider 1.5 to 2 cm of retraction. The oral gastric tube tip projects over the mid esophagus. This would be approximately 24 cm from the proximal port being within the region of the gastric fundus. Multiple left rib fractures. There is gas within the soft tissues of the left lateral chest wall. A definitive pneumothorax is not clearly seen however cannot be totally excluded given the gas in the soft tissues and rib fractures. Recommend CT scan of the chest to further evaluate. The stomach is distended. Contrast seen within the right renal collecting system. Correlate with any recent CT scanning with IV contrast. There is some widening to the right mediastinum however patient is rotated. This could be positioning however aortic pathology or mass lesion is not excluded. Correlate with prior studies versus CT scan with IV contrast. N.B. : The above information has been verbally conveyed by Petar Daniels to Dr. Joel MD, on 04/21/2018 05:49:45 (ET). Electronically Signed: Petar Daniels, at 5:20 EST Tel , Service support , Assessment/Plan Active and Suspected Problems (Last Updated 02/21/18 @ 16:04 by Magnolia Lopez) Neutropenic sepsis (Acute) Cardiopulmonary arrest with successful resuscitation (Acute) IMPRESSIONS: 1. Neutropenic fever/septic shock 2. Acute respiratory failure status post cardiac arrest 3. Newly diagnosed squamous cell carcinoma of the head/neck status post recent chemotherapy initiation 4. Acute kidney injury 5. Encephalopathy The patient presented as a transfer from an outside facility with neutropenic fever/septic shock after recently having been started on chemotherapy due to a squamous cell cancer of her head and neck. The patient deteriorated clinically while on route to our facility. She was evaluated in the emergency department, where she sustained a cardiac arrest. A spontaneous pulse was regained. However, following transfer to the ICU and despite maximal medical therapy, the patient continued to deteriorate clinically. Following arrival of the patient's , a decision was made to transition the patient to DNR CCA. Shortly thereafter, the patient went into PEA arrest and with family at the bedside at 0746. TIME: 40 minutes of critical care time, independent of procedures, was spent addressing the patient's neutropenic fever, septic shock, acute respiratory failure, cardiac arrest, squamous cell carcinoma of the head/neck, acute kidney injury, encephalopathy, review of all data and collaboration with the care team. ([id number]) Code Visit 9xxxx: [id number] Critical care first hour
--- NOTE | 2018-04-21 07:50 | NURSING ---
0730 pts , his brother and sister in law at bedside. discussed at length pt condition including current VS, recent code blue x2. Dr. Denny at bedside. Pressors DCd. Vent DC and OET/OG removed. 3678 lethal exodus, family remains at bedside
--- NOTE | 2018-04-21 08:30 | CPS ---
This was a terminal extubation, extubated per Dr. Denny's order.
--- NOTE | 2018-04-21 08:45 | CASEMGMT ---
Social Work: TC received from JAQUAN Jimenez in ICU stating that the patient was deteriorating and that was at bedside [facility]. Met with patient's , brother and sister in law in room. Upon arrival patient still had a pulse but was BP was dropping quickly. Physician and bedside RN both spoke with regarding goals and wishes for patient care. Patient's verbalized wish for comfort care only. Patient soon after. This social worker school offered to have licensed occupational therapy assistant vertical contour band saw operator called in but states that the Production Consultant from [facility] [employer] [facility] is on his way. This social worker school offered to call additional family but 's sister in law had already reached out to family members. This social worker school spent much time with and additional family members as they arrived providing emotional support and active listening. Spoke with patient's step son Luis Enrique who is indicating that family would like [facility] in [place] notified of patient . TC to [facility] after verification from bed side nurse that it is ok to call the home at this time. Spoke with Tanya. All needed patient information provided to Tanya who states that the health services director will arrive to hospital at around 9:30 am. Spoke with patient's and family to notify that the home is on the way. Once again provided support and active listening. Social Work to be available if additional needs arise. MILANA Jimenez
[2018-04-21 09:12] LABS: Reflex Lactate? Y
--- NOTE | 2018-04-21 14:59 | PCM.DEATH ---
Preliminary Cause of Septic shock secondary to neutropenic fever Date of Admission: 04/21/18 Date of : 04/21/18 - Principle Diagnosis septic shock secondary to neutropenic fever from recent chemotherapy Squamous cell carcinoma, head and neck cancer Problem List: History of skin cancer (Acute) Z85.828 History of hysterectomy (Acute) Z90.710 Thyroid nodule (Acute) E04.1 COPD (chronic obstructive pulmonary disease) (Acute) J44.9 Hemorrhoid (Acute) K64.9 Anxiety (Acute) F41.9 CAD (coronary artery disease) (Acute) I25.10 HTN (hypertension) (Chronic) I10 Osteoarthritis (Acute) M19.90 Supraclavicular mass (Acute) R22.2 Hospital Course Patient was seen and examined in ICU. Patient on full resuscitative measures and family discussion was going on for call of life care//advanced directive with Dr. Denny when I saw the patient. This is a 72-year-old female with multiple comorbidities as listed above including COPD, history of squamous cell cancer of head and neck was recently started on chemotherapy was admitted from [facility] for severe sepsis and neutropenic fever. It seems patient deteriorated in route and became less responsive and went into cardiac arrest with pulselessness and respiratory failure in ED where CODE BLUE was called and managed with ACLS protocol. Patient was intubated, had multiple rounds of epinephrine and CODE BLUE was run for prolonged time. However, patient had ROSC soon after CODE BLUE was terminated and therefore patient was transferred to ICU on Levophed drip. In ICU, vasopressin drip was started after max dose of Levophed. Policy Director was consulted and discussed with him. Patient was put on broad-spectrum antibiotic. Patient was still hypoxic even on maximum vent support as per the technical sourcing recruiter and therefore after discussion with the patient's family, patient was made DNR CC arrest. Shortly after that, patient had PEA, then pulselessness and asystole. The patient was declared at 0746 on April 21, 2018. As per the nursing staff, they received a call from [facility] for positive blood culture of gram-positive rods from both aerobic and anaerobic bottles. In all probability it seems patient of septic shock secondary to neutropenic fever from recent chemotherapy. Laboratory Results 04/21/18 04:39: POC Glucose 146 H 04/21/18 05:05: WBC 0.5 L*, RBC 2.99 L, Hgb 8.8 L, Hct 27.2 L, MCV 91.0, MCH 29.4, MCHC 32.4, RDW 13.3, RDW Differential 42.9, Plt Count 130 L, MPV 10.8, Immature Gran % (Auto) 0.000, Neut % (Auto) 3.8 L, Lymph % (Auto) 88.5 H, [place] % (Auto) 7.7, Eos % (Auto) 0.0, Baso % (Auto) 0.0, Absolute Neuts (auto) 0.0 L, Absolute Lymphs (auto) 0.46 L, Total Counted Not Reportable, Diff Path Review August04/21/18 05:05: Sodium 141, Potassium 4.2, Chloride 106, Carbon Dioxide 14.0 L, Anion Gap 21 H, BUN 21 H, Creatinine 1.79 H, Estim Creat Clear Calc 25.85, Est GFR (MDRD) Af Amer 36 L, Est GFR (MDRD) Non-Af 29 L, BUN/Creatinine Ratio 11.7, Glucose 222 H, Calcium 6.4 L*, Total Bilirubin 0.40, AST 1246 H, ALT 962 H, Alkaline Phosphatase 44 L, Troponin I 1.000 H*, Total Protein 2.5 L, Albumin 0.8 L, Globulin 1.7 L, Albumin/Globulin Ratio 0.5 L 04/21/18 05:05: Lactic Acid 11.4 H* 04/21/18 05:21: Magnesium 1.6 Code Visit Inpatient E&M: 46816 Disch Hosp
[2018-04-21 15:14] LABS: Pathologist Review Reviewed
== END 2018-04-21 07:46 | DRG 871 ==
LOC: ED 05:20 → ICU 05:31
PROVIDERS: Admitting Provider Student in an Organized Health Care Education/Training Program; Emergency Provider Emergency Medicine; Family Provider Family Medicine; PCP Family Medicine; Referring Provider Student in an Organized Health Care Education/Training Program; Visit Provider Internal Medicine
DX: A41.9 Sepsis, unspecified organism (principal); R65.21 Severe sepsis with septic shock; S22.42XA Multiple fractures of ribs, left side, initial encounter for closed fracture; K92.2 Gastrointestinal hemorrhage, unspecified; E87.2 Acidosis; E46 Unspecified protein-calorie malnutrition; I46.9 Cardiac arrest, cause unspecified; I10 Essential (primary) hypertension; R50.81 Fever presenting with conditions classified elsewhere; E78.5 Hyperlipidemia, unspecified; Y84.8 Other medical procedures as the cause of abnormal reaction of the patient, or of later complication, without mention of misadventure at the time of the procedure; C76.0 Malignant neoplasm of head, face and neck; Y92.238 Other place in hospital as the place of occurrence of the external cause; D70.1 Agranulocytosis secondary to cancer chemotherapy; T45.1X5A Adverse effect of antineoplastic and immunosuppressive drugs, initial encounter; J44.9 Chronic obstructive pulmonary disease, unspecified; I25.10 Atherosclerotic heart disease of native coronary artery without angina pectoris; M19.90 Unspecified osteoarthritis, unspecified site; K64.9 Unspecified hemorrhoids; Z66 Do not resuscitate; F41.9 Anxiety disorder, unspecified; R22.1 Localized swelling, mass and lump, neck; E04.1 Nontoxic single thyroid nodule; Z79.899 Other long term (current) drug therapy; Z68.23 Body mass index [BMI] 23.0-23.9, adult; Z90.710 Acquired absence of both cervix and uterus; Z85.828 Personal history of other malignant neoplasm of skin
CPT/HCPCS: 31500; 31720; 51702; 71045; 80053; 82962; 83605; 83735; 84484; 85025; 87040; 92950; 93005; 94002; 94770; 94799; 97802; 99285; J7030; J3490